=== PATIENT | female | born 1960 | race Two or more races ===

== ENCOUNTER 2023-09-17 09:52 | Outpatient (AMB) | payer MEDICARE, MEDICAID, SELFPAY ==
--- NOTE | 2023-09-17 09:57 | A.OFFVIS_ITS ---
Intake Vital Signs 3 09/17/23 09:58 Height 5 ft 1 in Weight 200 lb BMI 37.8 BP 144/75 H Blood Pressure Location Lt brachial Position Sitting Respiration 12 Pulse 68 Pulse Source Pulse Oximeter Pulse Oximetry (%) 99 Oxygen Delivery Method Room Air Intake Visit Reasons: Disorder of Sacrum/confirmed Allergies latex Adverse Reaction (Severe, Verified 09/17/23 10:02) bruising nabumetone Adverse Reaction (Severe, Verified 09/17/23 10:02) esophageal problems oxycodone Adverse Reaction (Severe, Verified 09/17/23 10:02) n/v Sulfa (Sulfonamide Antibiotics) Adverse Reaction (Severe, Verified 09/17/23 10:02) heart palpitations tramadol Adverse Reaction (Severe, Verified 09/17/23 10:02) rash Medication List - Last Reconciled 09/17/23 by Shanti Juarez LPN albuterol sulfate 90 mcg/actuation (Ventolin HFA) inhalation amlodipine 5 mg PO QPM baclofen 10 mg PO TID epinephrine IM gabapentin 100 mg PO TID levothyroxine 50 mcg PO DAILY metformin 1,000 mg PO BID minoxidil 1.25 mg PO DAILY oxybutynin chloride ER 15 mg PO DAILY sodium hyaluronate (viscosup) (Euflexxa) 16.8 mg intra-articular QWEEK HPI Disorder of Sacrum/confirmed 2 HPI0 Details 63-year-old female who presents today to the office for an evaluation of low back pain. The patient was referred by Dr. Sullivan. Her lower back was described as an aching stabbing sensation that is bilateral, with radiation down the left lower extremity up to the ankle. She has localized lumbar pain when she is upright and if she is slightly bent forward. She has difficulty washing dishes or ambulating with her walker. Her low back and leg pain is about 6-8/10 in intensity. Weather changes and movements make the pain worse. 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 The patient had a left SI joint injection on 08/16/23 that seemed to provide about 60 to 70% relief for a few weeks. She has been using SI compression brace, which is helpful. She is taking gabapentin with minimal benefit. She also complains of bilateral shoulder pain as well as neck pain. Her shoulder pain is rated at 5/10 in intensity. Her neck pain is rated as 8-10/10 in intensity. She is unable to sleep normally. She also receives Euflexxa injections in her knees every six months. She has previously exhausted acupuncture, herbal medications, aquatic exercises, and massage therapy. Her last round of physical therapy was three to four years ago, which was not very helpful. She had weight loss surgery and has been working with weight management at [facility]. She has lost about 100 lbs. since surgery. She had a retinal tear in the past. She also has a floater in her eye. She denies any glaucoma. She has a scheduled appointment with [facility] in [place] later this week. She has a scheduled left retinal surgery in December 2023. She already had right-sided work done in the past. She is retired from work. She was a real estate investor. Oswestry disability index score for low back pain: 37 [facility] Medical History (Updated 09/19/23 @ 09:46 by Shane Musa) Osteoarthritis of knees, bilateral Morbid obesity Diabetes mellitus Hypothyroidism Chronic pain syndrome HTN (hypertension) Asthma Disorder of sacrum Review of Systems Const All systems reviewed & are unremarkable except as noted in HPI and below Physical Exam Vital Signs: Last Vital Signs Pulse 68 09/17/23 09:58 Resp 12 09/17/23 09:58 BP 144/75 H 09/17/23 09:58 Pulse Ox 99 09/17/23 09:58 Oxygen Delivery Method Room Air 09/17/23 09:58 BMI result Body Mass Index 37.8 General: Appears afebrile. Alert and oriented. Mood and affect appropriate. Follows and participates in conversation appropriately. Respiratory effort is unlabored. Able to transition from sit to stand unassisted. Ambulates with with the help of a walker. Straight leg raise is positive on both sides. Extension of the lumbar spine reproduces pain across the lower back. Forward flexion does not reproduce pain. Results Reviewed Results Reviewed: April 2023: MR LUMBAR SPINE WITHOUT CONTRAST. Her MRI scan showed mild anterolisthesis at L4-5 and small Schmorl's node at the inferior and plate of L5 vertebral body. At L 3-4; there is a moderate bilateral facet joint and ligamentum flavum hypertrophy. At L4-5; severe bilateral facet joint hypertrophy and severe spinal canal stenosis. Assessment & Plan Assessment & Plan (1) Sacroiliac joint dysfunction: Code(s): M53.3 - Sacrococcygeal disorders, not elsewhere classified (2) Lumbar spinal stenosis: Code(s): M48.061 - Spinal stenosis, lumbar region without neurogenic claudication (3) Lumbar spondylosis: Code(s): M47.816 - Spondylosis without myelopathy or radiculopathy, lumbar region (4) Lumbar radiculopathy: Code(s): M54.16 - Radiculopathy, lumbar region (5) Lumbar adjacent segment disease with spondylolisthesis: Code(s): M51.36 - Other intervertebral disc degeneration, lumbar region; M43.16 - Spondylolisthesis, lumbar region (6) Vertebrogenic low back pain: Code(s): M54.51 - Vertebrogenic low back pain Plan Pain appears to be multifactorial in nature with a combination of facet arthritis, disc degeneration, vertebral endplate degeneration, sacroiliac joint dysfunction and spinal stenosis. Will schedule her for a left L4-5 diagnostic transforaminal epidural injection. In the future may consider lumbar facet blocks as well as repeat a diagnostic sacroiliac joint injection before pursuing more definitive therapy for any of these targets. Discussed the risks and benefits of the procedure with the patient in detail. All questions were answered. The patient is on board with the plan. Justification for interventional therapy: ? Patient with average pain > 6/10 ? Patient has exhausted conservative therapy ? Patient unable to tolerate physical therapy due to pain Scribed for Dr. Hood by Shane Musa, biomedical equipment tech, on 09/17/2023. I, Dr. Hood, have personally reviewed and agree with the information entered by the scribe. Coding Level of Care Code New Pt Level 4 (28498) Diagnoses Sacroiliac joint dysfunction M53.3 Lumbar spinal stenosis M48.061 Lumbar spondylosis M47.816 Lumbar radiculopathy M54.16 Lumbar adjacent segment disease with spondylolisthesis M51.36; M43.16 Vertebrogenic low back pain M54.51
[2023-09-17 09:58] VITALS: BP 144/75; PULSE 68; RESP 12; O2SAT 99; BMI 37.8
== END 2023-09-17 10:49 | disposition home or self-care (01) ==
PROVIDERS: PCP Student in an Organized Health Care Education/Training Program; Visit Provider Internal Medicine
DX: M53.3 Sacrococcygeal disorders, not elsewhere classified (principal); M48.061 Spinal stenosis, lumbar region without neurogenic claudication; M47.816 Spondylosis without myelopathy or radiculopathy, lumbar region; M54.16 Radiculopathy, lumbar region; M51.36 Other intervertebral disc degeneration, lumbar region; M43.16 Spondylolisthesis, lumbar region; M54.51 Vertebrogenic low back pain
CPT/HCPCS: 99204

== ENCOUNTER → 2023-09-17 09:52 | Outpatient (BNVA) | payer MEDICARE, MEDICAID, SELFPAY | PROVIDERS: PCP Student in an Organized Health Care Education/Training Program; Visit Provider Internal Medicine | DX: M53.3 Sacrococcygeal disorders, not elsewhere classified (principal); M48.061 Spinal stenosis, lumbar region without neurogenic claudication; M47.816 Spondylosis without myelopathy or radiculopathy, lumbar region; M54.16 Radiculopathy, lumbar region; M51.36 Other intervertebral disc degeneration, lumbar region; M43.16 Spondylolisthesis, lumbar region; M54.51 Vertebrogenic low back pain | CPT/HCPCS: 99202 ==

== ENCOUNTER 2023-09-20 06:16 | Outpatient (REF) | payer MEDICARE, MEDICAID, SELFPAY ==
--- NOTE | ~2023-09-20 | FL_ITS ---
EXAMINATION: XR FLUOROSCOPY WITH IMAGES CLINICAL INFORMATION: Radiculopathy, lumbar region COMPARISON: None TECHNIQUE: Fluoroscopic imaging guidance during lumbar injection procedure performed by Dr. Briggs. Fluoroscopy exposure time: 21.7 seconds Dose: 14.3 mGy Dose area product: This information is not given on the dose data summary sheet Images saved: 3 FINDINGS: The purpose of this report is to document use of fluoroscopic imaging equipment during injection procedure of the lumbar spine. Please refer to the procedure report by Dr. Briggs.
== END 2023-09-20 06:17 | disposition home or self-care (01) ==
LOC: CF 06:16
PROVIDERS: Visit Provider Internal Medicine
DX: M54.16 Radiculopathy, lumbar region (principal)
CPT/HCPCS: 64483; J2795; Q9967

== ENCOUNTER 2023-09-20 10:46 | Outpatient (AMB) | payer MEDICARE, MEDICAID, SELFPAY ==
[2023-09-20 10:54] VITALS: BP 122/82; PULSE 79; O2SAT 97
--- NOTE | 2023-09-20 10:54 | MHC.OFFVIS ---
Intake Vital Signs 09/20/23 10:54 Height 5 ft 1 in BP 122/82 Blood Pressure Location Rt brachial Position Sitting Pulse 79 Pulse Source Doppler Pulse Oximetry (%) 97 Oxygen Delivery Method Room Air Intake Visit Reasons: Left L4-L5 Dx transforaminal epidural injection Allergies latex Adverse Reaction (Severe, Verified 09/17/23 10:02) bruising nabumetone Adverse Reaction (Severe, Verified 09/17/23 10:02) esophageal problems oxycodone Adverse Reaction (Severe, Verified 09/17/23 10:02) n/v Sulfa (Sulfonamide Antibiotics) Adverse Reaction (Severe, Verified 09/17/23 10:02) heart palpitations tramadol Adverse Reaction (Severe, Verified 09/17/23 10:02) rash HPI Left L4-L5 Dx transforaminal epidural injection HPI Details Patient presents for scheduled procedure. Denies any recent cough, cold, infection, fever or other significant changes in medical history since last office visit. [facility] Medical History (Updated 09/19/23 @ 09:46 by Shane Musa) Osteoarthritis of knees, bilateral Morbid obesity Diabetes mellitus Hypothyroidism Chronic pain syndrome HTN (hypertension) Asthma Disorder of sacrum Physical Exam Vital Signs: Last Vital Signs Pulse 79 09/20/23 10:54 BP 122/82 09/20/23 10:54 Pulse Ox 97 09/20/23 10:54 Oxygen Delivery Method Room Air 09/20/23 10:54 Office Procedures Details: Transforaminal epidural steroid injection, Left L3/4 After obtaining written consent, pre-procedure blood pressure and heart rate were stable and recorded in the nursing record. The patient was placed in the prone position on the fluoroscopy table. The lumbosacral area was prepped with chloraprep, allowed to dry and draped in sterile fashion. For ease of access, the L3/4 foramen was targeted. Using fluoroscopy, the skin overlying our target was anesthetized with 0.5% lidocaine. A 22 gauge 3.5 inch spinal needle was advanced to the safe triangle in the upper pole of the left L3 foramen. No paresthesias were elicited with needle placement and aspiration was negative for blood and CSF. Correct needle position was confirmed with approximately 1 ml contrast dye (Omnipaque 180 mg/ml) injected under real-time fluoroscopy. No evidence of vascular or intrathecal uptake was seen and there was both epidural and peripheral spread of the contrast agent. 1.5 ml containing 0.5% lidocaine and 0.5% ropivacaine was slowly injected. The needle was flushed and removed. The skin was cleansed and a sterile bandages were applied. The patient tolerated the procedure well and no complications were encountered. Following the procedure the patient's vital signs were stable. The patient was discharged home in good condition with post-procedural instructions. Time Out: Immediately prior to the procedure, the following was verbally confirmed that there is a signed consent form and that the correct patient, planned procedure, site and side are consistent with documentation and that necessary equipment and/or blood products are available prior to the start of the case. Complications: none EBL: <5 cc 32803 - Lumbar/Sacral Procedure code (CPT) selection complete Assessment & Plan Assessment & Plan (1) Lumbar radiculopathy: Code(s): M54.16 - Radiculopathy, lumbar region Plan Patient is status post left L3/4 diagnostic TFESI. Patient tolerated procedure well and was discharged home in stable condition with discharge instructions. All questions were answered. We will follow-up via telephone or in clinic to assess response to therapy. A follow-up appointment was made during today's visit. Orders: Orders FL guidance in treatment room Today M54.16 - Radiculopathy, lumbar region Coding Level of Care Code Procedure Only Diagnoses Lumbar radiculopathy M54.16 CPT Codes Transforaminal Epidural Steroid Inj - TESI 3: 51562 - Lumbar/Sacral ([id number])
== END 2023-09-20 11:33 | disposition home or self-care (01) ==
LOC: HO.PMCPRC 10:47
PROVIDERS: PCP Student in an Organized Health Care Education/Training Program; Visit Provider Internal Medicine
DX: M54.16 Radiculopathy, lumbar region (principal)
CPT/HCPCS: 64483

== ENCOUNTER 2023-09-28 11:17 | Outpatient (AMB) | payer MEDICARE, MEDICAID, SELFPAY ==
--- NOTE | 2023-09-28 11:19 | A.OFFVIS_ITS ---
Intake Vital Signs 09/28/23 11:24 Height 5 ft 1 in Weight 206 lb BMI 38.9 BP 141/68 H Blood Pressure Location Lt brachial Position Sitting Respiration 12 Pulse 80 Pulse Source Pulse Oximeter Pulse Oximetry (%) 99 Oxygen Delivery Method Room Air Intake Visit Reasons: s/p Left L4-L5 Dx transforaminal epidural inj Allergies latex Adverse Reaction (Severe, Verified 09/28/23 11:26) bruising nabumetone Adverse Reaction (Severe, Verified 09/28/23 11:26) esophageal problems oxycodone Adverse Reaction (Severe, Verified 09/28/23 11:26) n/v Sulfa (Sulfonamide Antibiotics) Adverse Reaction (Severe, Verified 09/28/23 11:26) heart palpitations tramadol Adverse Reaction (Severe, Verified 09/28/23 11:26) rash Medication List - Last Reconciled 09/28/23 by Shanti Juarez LPN albuterol sulfate 90 mcg/actuation (Ventolin HFA) inhalation amlodipine 5 mg PO QPM baclofen 10 mg PO TID epinephrine IM gabapentin 100 mg PO TID levothyroxine 50 mcg PO DAILY metformin 1,000 mg PO BID minoxidil 1.25 mg PO DAILY oxybutynin chloride ER 15 mg PO DAILY sodium hyaluronate (viscosup) (Euflexxa) 16.8 mg intra-articular QWEEK HPI s/p Left L4-L5 Dx transforaminal epidural inj HPI Details 63-year-old female who presents today to the office for a status post left L4-L5 diagnostic TFESI The patient reports 90% relief following the procedure for two days for back symptoms. She states that her pain started coming back on 09/25/23. She has a history of SIJ pain on the right side. She reports worsening of pain in the mid back region when bending forward more than 90 degrees. She also noticed improvement in electrical sensations in her leg for two days. She is avoiding strenuous activity at home. She performs aqua jogging with good benefit. She has previously had epidural steroid injections with very minimal length of relief. Past procedure: 09/20/23: Transforaminal epidural steroid injection, Left L3/4: 90% relief for two days for back symptoms. [facility] Medical History (Updated 09/28/23 @ 12:29 by Adam Hood MD) Osteoarthritis of knees, bilateral Morbid obesity Diabetes mellitus Hypothyroidism Chronic pain syndrome HTN (hypertension) Asthma Disorder of sacrum Review of Systems Const All systems reviewed & are unremarkable except as noted in HPI and below Physical Exam Vital Signs: Last Vital Signs Pulse 80 09/28/23 11:24 Resp 12 09/28/23 11:24 BP 141/68 H 09/28/23 11:24 Pulse Ox 99 09/28/23 11:24 Oxygen Delivery Method Room Air 09/28/23 11:24 BMI result Body Mass Index 38.9 General: Appears afebrile. Alert and oriented. Mood and affect appropriate. Follows and participates in conversation appropriately. Respiratory effort is unlabored. Able to transition from sit to stand unassisted. Ambulates with bilaterally normal heel strike and toe off. Results Reviewed Results Reviewed: MR images reviewed again Assessment & Plan Assessment & Plan (1) Spinal stenosis, lumbar region with neurogenic claudication: Code(s): M48.062 - Spinal stenosis, lumbar region with neurogenic claudication Plan We reviewed her imaging that showed moderate spinal stenosis at L3-4 and L4-5 ligamentum flavum hypertrophy at both sides. She is interested in more long-term options. I had an extensive discussion about minimally invasive lumbar decompression. We also reviewed her images and the details of the procedure today. She is interested in proceeding with the plan. We will schedule her for bilateral L3-L4-L5 MILD. Discussed the risks and benefits of the procedure with the patient in detail. All questions were answered. The patient is on board with the plan. Justification for interventional therapy: ? Patient with average pain > 6/10 ? Patient has exhausted sacroiliac and epidural steroid injections ? Patient unable to tolerate physical therapy due to pain Scribed for Dr. Hood by Shane Musa, medical assistant prn, on 09/28/2023. I, Dr. Hood, have personally reviewed and agree with the information entered by the scribe. Coding Level of Care Code Est Pt Level 4 (53336) Diagnoses Spinal stenosis, lumbar region with neurogenic claudication M48.062
[2023-09-28 11:24] VITALS: BP 141/68; PULSE 80; RESP 12; O2SAT 99; BMI 38.9
== END 2023-09-28 12:07 | disposition home or self-care (01) ==
PROVIDERS: PCP Student in an Organized Health Care Education/Training Program; Visit Provider Internal Medicine
DX: M48.062 Spinal stenosis, lumbar region with neurogenic claudication (principal)
CPT/HCPCS: 99214

== ENCOUNTER → 2023-09-28 11:17 | Outpatient (BNVA) | payer MEDICARE, MEDICAID, SELFPAY | PROVIDERS: PCP Student in an Organized Health Care Education/Training Program; Visit Provider Internal Medicine | DX: M48.062 Spinal stenosis, lumbar region with neurogenic claudication (principal) | CPT/HCPCS: 99212 ==

== ENCOUNTER 2023-11-14 11:26 | Day surgery (SDC) | payer MEDICARE, MEDICAID, SELFPAY ==
--- NOTE | 2023-11-13 11:02 | HO.ANESPROP2 ---
Documented by User: Raegan Allen NP 11/13/23 11:02 HPI - Anesthesia Eval Consult details Narrative: 63yo F for Bilateral L3-L4-L5 Minimally Invasive Lumbar Decompression PMFSH Active Problems Active Problems: All Active Problems (Updated 09/28/23 @ 12:29 by Adam Hood MD) Spinal stenosis, lumbar region with neurogenic claudication (Acute) Vertebrogenic low back pain (Acute) Lumbar adjacent segment disease with spondylolisthesis (Acute) Lumbar radiculopathy (Acute) Lumbar spondylosis (Acute) Lumbar spinal stenosis (Acute) Sacroiliac joint dysfunction (Acute) Past Medical History Medical History Hx of restrictive lung disease Osteopenia Hx of hepatic disease GERD (gastroesophageal reflux disease) History of polycystic ovarian disease Osteoarthritis of knees, bilateral Morbid obesity Hypothyroidism Chronic pain syndrome HTN (hypertension) Asthma Disorder of sacrum Surgical History Surgical History Hx of exploratory laparotomy Hx of hysterectomy Hx of appendectomy Hx of abdominal surgery Hx of eye surgery History of sleeve gastrectomy Hx of left cataract extraction Social History Social History Patient Tobacco Use Status: Never used Tobacco Use of substances other than those prescribed or required for medical reasons: No Are you DNR?: No Advance Directives: Yes Advance Directives Information Provided: Yes Advance Directives on File: No Advance Directives Date on File: 11/14/23 Meds Allergies Allergy/AdvReac Type Severity Reaction Status Date / Time latex AdvReac Severe bruising Verified 11/14/23 11:59 nabumetone AdvReac Severe esophageal Verified 11/14/23 11:59 problems oxycodone AdvReac Severe n/v Verified 11/14/23 11:59 Sulfa (Sulfonamide AdvReac Severe heart Verified 11/14/23 11:59 Antibiotics) palpitations tramadol AdvReac Severe rash Verified 11/14/23 11:59 Home Medications Medication Instructions Recorded Confirmed Last Taken Type albuterol sulfate 90 mcg/actuation inhalation 09/17/23 09/28/23 Unknown History aerosol inhaler (Ventolin HFA) amlodipine 5 mg tablet 5 mg PO QPM 09/17/23 09/28/23 Unknown History baclofen 10 mg tablet 10 mg PO TID 09/17/23 09/28/23 Unknown History epinephrine 0.3 mg/0.3 mL IM 09/17/23 09/28/23 Unknown History injection, auto-injector gabapentin 100 mg capsule 100 mg PO TID 09/17/23 09/28/23 Unknown History levothyroxine 50 mcg tablet 50 mcg PO DAILY 09/17/23 09/28/23 Unknown History metformin 500 mg tablet 1,000 mg PO BID 09/17/23 09/28/23 Unknown History minoxidil 2.5 mg tablet 1.25 mg PO DAILY alopecia 09/17/23 09/28/23 Unknown History oxybutynin chloride 15 mg 15 mg PO DAILY 09/17/23 09/28/23 Unknown History tablet,extended release 24 hr sodium hyaluronate (viscosup) 10 16.8 mg intra-articular QWEEK 09/17/23 09/28/23 Unknown History mg/mL(mw 2.4-3.6 million)intra-articular syringe (Euflexxa) Assessment and Plan Assessment Anesthesia Assessment: Chart Reviewed Documented by User: Blanche Klein MD 11/14/23 14:51 PMFSH Past Medical History Medical History Hx of restrictive lung disease Osteopenia Hx of hepatic disease GERD (gastroesophageal reflux disease) History of polycystic ovarian disease Osteoarthritis of knees, bilateral Morbid obesity Hypothyroidism Chronic pain syndrome HTN (hypertension) Asthma Disorder of sacrum Surgical History Surgical History Hx of exploratory laparotomy Hx of hysterectomy Hx of appendectomy Hx of abdominal surgery Hx of eye surgery History of sleeve gastrectomy Hx of left cataract extraction History of Problems with Anesthesia: No Social History Social History Patient Tobacco Use Status: Never used Tobacco Use of substances other than those prescribed or required for medical reasons: No Are you DNR?: No Advance Directives: Yes Advance Directives Information Provided: Yes Advance Directives on File: No Advance Directives Date on File: 11/14/23 Meds Allergies Allergy/AdvReac Type Severity Reaction Status Date / Time latex AdvReac Severe bruising Verified 11/14/23 11:59 nabumetone AdvReac Severe esophageal Verified 11/14/23 11:59 problems oxycodone AdvReac Severe n/v Verified 11/14/23 11:59 Sulfa (Sulfonamide AdvReac Severe heart Verified 11/14/23 11:59 Antibiotics) palpitations tramadol AdvReac Severe rash Verified 11/14/23 11:59 Home Medications Medication Instructions Recorded Confirmed Last Taken Type albuterol sulfate 90 mcg/actuation inhalation 09/17/23 09/28/23 Unknown History aerosol inhaler (Ventolin HFA) amlodipine 5 mg tablet 5 mg PO QPM 09/17/23 09/28/23 Unknown History baclofen 10 mg tablet 10 mg PO TID 09/17/23 09/28/23 Unknown History epinephrine 0.3 mg/0.3 mL IM 09/17/23 09/28/23 Unknown History injection, auto-injector gabapentin 100 mg capsule 100 mg PO TID 09/17/23 09/28/23 Unknown History levothyroxine 50 mcg tablet 50 mcg PO DAILY 09/17/23 09/28/23 Unknown History metformin 500 mg tablet 1,000 mg PO BID 09/17/23 09/28/23 Unknown History minoxidil 2.5 mg tablet 1.25 mg PO DAILY alopecia 09/17/23 09/28/23 Unknown History oxybutynin chloride 15 mg 15 mg PO DAILY 09/17/23 09/28/23 Unknown History tablet,extended release 24 hr sodium hyaluronate (viscosup) 10 16.8 mg intra-articular QWEEK 09/17/23 09/28/23 Unknown History mg/mL(mw 2.4-3.6 million)intra-articular syringe (Euflexxa) Exam Airway Mallampati Class: II TM Dist: >3cm Neck ROM: Full Denture: Upper and Lower Loose/Missing/Broken Teeth: Yes, Upper and Lower Heart: RRR Lungs: CTA Assessment and Plan Assessment Anesthesia Assessment: Anesthesia Plan Discussed Final Anesthetic Review History of Problems with Anesthesia: No NPO: Yes ASA Class: II Final Preanesthetic Review: Meds/Allgs Chart Reviewed, Consent Obtained/Reviewed and Anes Risks/Benef Reviewed Patient Risk: Low Procedure Risk: Low Anesthetic Plan Anesthetic Plan: MAC: Disposition: Standard PACU
[2023-11-14] VITALS (13 sets, daily range): BP systolic 111–142; BP diastolic 65–83; PULSE 59–72; RESP 14–17; TEMP 36.6–36.8; O2SAT 98–100; BMI 38.2
--- NOTE | ~2023-11-14 | FL_ITS ---
EXAMINATION: XR FLUOROSCOPY WITH IMAGES CLINICAL INFORMATION: Minimally invasive lumbar decompression. COMPARISON: Fluoroscopy dated 09/20/2023. TECHNIQUE: Fluoroscopy Supervised By: Dr. Adam Hood. Fluoroscopy Time: 7.7 minutes. Cumulative Dose: 277 mGy. DAP: 11.2 Gycm2. Images: 5. FINDINGS: The submitted images show surgical instruments related to lumbar decompression. FL/FL guidance in OR IMPRESSION: Intraoperative fluoroscopic guidance is provided minimally invasive lumbar decompression. Please see the patient's Operative Report for full procedural details.
[2023-11-14] MEDS: Lactated Ringers 1,000 ML 100 ML IVCONT (12:15)
[2023-11-14 12:23] LABS: Glucose, Whole Blood 101 mg/dL (60-115)
--- NOTE | 2023-11-14 14:24 | MHC.SHP ---
Pre-Procedural Eval Section A - 24 Hr Update-Section A only Date of Service: 11/14/23 The patient is an INPATIENT: No Changes since office visit: Yes Patient answered all questions The patient has been examined within 24 hours of the surgical procedure. The History & Physical has been completed within 30 days and I have reviewed it.: No Section B - Complete if H&P > 30 days Chief Complaint: Spinal stenosis, lumbar region with neurogenic cla Relevant Family History (Specify if Yes): No Relevant Social History: None Present Medications: see Short Stay Collaborative assessment Medical History: No relevant PMH History of Previous Operations: No relevant previous surgery Allergies: Allergies Allergy/AdvReac Type Severity Reaction Status Date / Time latex AdvReac Severe bruising Verified 11/14/23 11:59 nabumetone AdvReac Severe esophageal Verified 11/14/23 11:59 problems oxycodone AdvReac Severe n/v Verified 11/14/23 11:59 Sulfa (Sulfonamide AdvReac Severe heart Verified 11/14/23 11:59 Antibiotics) palpitations tramadol AdvReac Severe rash Verified 11/14/23 11:59 Review of Systems Sugical H&P ROS: Negative: Constitution, Cardiovascular and Respiratory Exam Surgical H&P Exam: Normal: HEENT, Normal: Heart and Normal: Lungs Plan Diagnosis/Plan: Unchanged I have reviewed the history and physical and performed a pertinent physical examination on my patient. No changes have occurred unless specified. Time Spent With Patient Time: Total time managing care of this patient today ____ minutes.
--- NOTE | 2023-11-14 14:29 | P.BOP_ITS ---
Brief Operative Note Date of Service: 11/14/23 Pre-op diagnosis: Lumbar spinal stenosis with neurogenic claudication Post-op diagnosis: same Procedure: Minimally invasive lumbar decompression, L3-4, L4-5 Implants: None Surgeon: Adam Hood MD Anesthesia: MAC Was an Restaurant Assistant used for this Procedure?: No Estimated blood loss (mL): 5 Pathology: none sent Condition: stable Disposition: PACU
--- NOTE | 2023-11-14 14:29 | W.PM.OPN ---
Operative Note Operative Note Date of Service: 11/14/23 Narrative: Minimally Invasive Lumbar Decompression, Bilateral, L-3/4, L-4/5 After informed consent, patient was brought to the operating room. The patient was placed in the prone position in the fluoroscopy suite with blankets (bolster) under the hips to assist with reversing lordosis of the spine. Following IV sedation and antibiotic administration, the patient was prepped and draped in my usual standard fashion. Time-out was performed to confirm site and level of intervention. Ample amounts of local anesthetic were used to anesthetize the skin and deep facial planes after topographical landmarks were identified. Procedural safety barriers were established by utilizing a contralateral oblique (FARHAT) view to visualize the ventral interlaminar line (VILL). Instruments remained posterior to the VILL during the percutaneous lumbar decompression procedure. A small midline incision was made with a sharp scalpel blade, and a trocar with portal was inserted percutaneously under fluoroscopic guidance to contact the lamina indicated. The trocar and portal were tugged to the right side to approach the right interlaminar space first. A bone-sculpting rongeur was inserted to remove adequate amounts of lamina (laminotomy) from the superior surface of the inferior operative lamina site and from the inferior aspect of the lamina above it. The laminotomy created a passage for the tissue sculpting instrument used in debulking the ligamentum flavum. The ligamentum flavum was debulked until diminished returns. A similar procedure was performed on the contralateral side. There were no complications or difficulties noted with these procedures. Upon completion of the procedure, instruments were removed, hemostasis was achieved by direct pressure, and wound closure was performed with dermabond and steristrips. The patient tolerated the procedure well. Upon transferring the patient to the recovery room, the patient?s vital signs remained stable and without any neurologic deficits. The patient was discharged with instructions to rest, continue with ice, and to demonstrate progressive mobility. The patient was given a follow-up exam time and date along with instructions and contact information for any questions or concerns. The patient is to be followed up in the office for further evaluation and treatment, as deemed appropriate and necessary, and for any concerns regarding the procedure.
[2023-11-14 15:09] LABS: MRSA Nasal PCR NEGATIVE (Negative); SA Nasal PCR NEGATIVE (Negative)
[2023-11-14] MEDS: fentaNYL citrate/PF 100 MCG/2 ML VIAL 25 MCG IVPUSH (16:45)
== END 2023-11-14 17:30 | disposition home or self-care (01) ==
PROVIDERS: Registered Nurse Emergency; PCP Student in an Organized Health Care Education/Training Program; Visit Provider Internal Medicine
PROC: (CPT 0275T; principal; 2023-11-14 13:40)
DX: M48.062 Spinal stenosis, lumbar region with neurogenic claudication (principal); Z00.6 Encounter for examination for normal comparison and control in clinical research program; G89.4 Chronic pain syndrome; M53.3 Sacrococcygeal disorders, not elsewhere classified; I10 Essential (primary) hypertension; J45.909 Unspecified asthma, uncomplicated; E11.9 Type 2 diabetes mellitus without complications; E66.01 Morbid (severe) obesity due to excess calories; Z68.38 Body mass index [BMI] 38.0-38.9, adult; Z79.84 Long term (current) use of oral hypoglycemic drugs; Z79.899 Other long term (current) drug therapy; Z91.040 Latex allergy status; Z88.5 Allergy status to narcotic agent; Z88.2 Allergy status to sulfonamides
CPT/HCPCS: 0275T; 82947; 87640; 87641; A4364; C1889; J0131; J0690; J1885; J2250; J2405; J2704; J2795; J3010

== ENCOUNTER → 2023-11-14 11:26 | Outpatient (BNV) | payer MEDICARE, MEDICAID, SELFPAY | PROVIDERS: PCP Student in an Organized Health Care Education/Training Program; Visit Provider Internal Medicine | DX: M48.062 Spinal stenosis, lumbar region with neurogenic claudication (principal); Z00.6 Encounter for examination for normal comparison and control in clinical research program | CPT/HCPCS: 0275T ==

== ENCOUNTER 2023-11-21 09:54 | Outpatient (AMB) | payer MEDICARE, MEDICAID, SELFPAY ==
--- NOTE | 2023-11-21 10:07 | A.OFFVIS_ITS ---
Intake Vital Signs 11/21/23 10:08 Height 5 ft 2 in Weight 209 lb BMI 38.2 BP 146/82 H Blood Pressure Location Lt brachial Position Sitting Pulse 86 Pulse Source Pulse Oximeter Pulse Oximetry (%) 99 Oxygen Delivery Method Room Air Intake Visit Reasons: S/p L3-L4-L5 MILD 11/14/23 Allergies latex Adverse Reaction (Severe, Verified 11/21/23 10:07) bruising nabumetone Adverse Reaction (Severe, Verified 11/21/23 10:07) esophageal problems oxycodone Adverse Reaction (Severe, Verified 11/21/23 10:07) n/v Sulfa (Sulfonamide Antibiotics) Adverse Reaction (Severe, Verified 11/21/23 10:07) heart palpitations tramadol Adverse Reaction (Severe, Verified 11/21/23 10:07) rash Medication List - Last Reconciled 11/21/23 by Heather Tripathi, CUSTOMER MANAGEMENT SPECIALIST albuterol sulfate 90 mcg/actuation (Ventolin HFA) inhalation amlodipine 5 mg PO QPM baclofen 10 mg PO TID epinephrine IM gabapentin 100 mg PO TID levothyroxine 50 mcg PO DAILY metformin 1,000 mg PO BID minoxidil 1.25 mg PO DAILY morphine 7.5 mg (1/2 x 15 mg) PO BID PRN oxybutynin chloride ER 15 mg PO DAILY sodium hyaluronate (viscosup) (Euflexxa) 16.8 mg intra-articular QWEEK HPI S/p L3-L4-L5 MILD 11/14/23 HPI Details 63-year-old female who presents today to the office for status post L3-L4-L5 MILD 11/14/23 The patient reports 90% relief following the procedure. Today, she is feeling much better and was able to walk without her walker and is using just a cane. She continues to have left-sided sacroiliac joint pain. ____ motion which responds to application of a compression belt that has been previously prescribed to her for SI joint dysfunction. She has a vacation coming up here in 2 or 3 weeks and is interested in SI joint injection to help with her pain. Past Procedures: 11/14/23: Minimally Invasive Lumbar Decom pression, Bilateral, L-3/4, L-4/5: 90% relief PFSH Medical History Hx of restrictive lung disease Osteopenia Hx of hepatic disease GERD (gastroesophageal reflux disease) History of polycystic ovarian disease Osteoarthritis of knees, bilateral Morbid obesity Hypothyroidism Chronic pain syndrome HTN (hypertension) Asthma Disorder of sacrum Surgical History Hx of exploratory laparotomy Hx of hysterectomy Hx of appendectomy Hx of abdominal surgery Hx of eye surgery History of sleeve gastrectomy Hx of left cataract extraction Social History Patient Tobacco Use Status: Never used Tobacco Advance Directives Date on File: 11/14/23 Review of Systems Const All systems reviewed & are unremarkable except as noted in HPI and below Physical Exam Vital Signs: Last Vital Signs Pulse 86 11/21/23 10:08 BP 146/82 H 11/21/23 10:08 Pulse Ox 99 11/21/23 10:08 Oxygen Delivery Method Room Air 11/21/23 10:08 BMI result Body Mass Index 38.2 General: Appears afebrile. Alert and oriented. Mood and affect appropriate. Follows and participates in conversation appropriately. Respiratory effort is unlabored. Able to transition from sit to stand unassisted. Results Reviewed Results Reviewed: No imaging is available for review Assessment & Plan Assessment & Plan (1) Sacroiliac joint dysfunction: Code(s): M53.3 - Sacrococcygeal disorders, not elsewhere classified Plan We will schedule for a left sacroiliac joint therapeutic injection in setting of prior sacroiliac joint dysfunction that responds well to compression belt application. Her neurogenic claudication symptoms are 90% better. I provided her with a list of exercises to continue at home to help improve her spinal strength and stability. She is on medications for hypertension, so I advised her to watch her blood pressure after the cortisone injection since she will be traveling soon after. Discussed the risks and benefits of the procedure with the patient in detail. All questions were answered. The patient is on board with the plan. Justification for interventional therapy: ? Patient with average pain > 6/10 ? Patient has exhausted conservative therapy ? Patient continuing home exercise program ? SI joint compression provides temporary relief . Patient has a good understanding of their pain condition and has appropriate mental and social support. Scribed for Dr. Hood by Christen Adamson, medical pathologist, on 10/10/2023. I, Dr. Hood, have personally reviewed and agree with the information entered by the scribe. Coding Level of Care Code Est Pt Level 3 (01641) Diagnoses Sacroiliac joint dysfunction M53.3
[2023-11-21 10:08] VITALS: BP 146/82; PULSE 86; O2SAT 99; BMI 38.2
== END 2023-11-21 10:35 | disposition home or self-care (01) ==
PROVIDERS: PCP Student in an Organized Health Care Education/Training Program; Visit Provider Internal Medicine
DX: M53.3 Sacrococcygeal disorders, not elsewhere classified (principal)
CPT/HCPCS: 99024

== ENCOUNTER → 2023-11-21 09:54 | Outpatient (BNVA) | payer MEDICARE, MEDICAID, SELFPAY | PROVIDERS: PCP Student in an Organized Health Care Education/Training Program; Visit Provider Internal Medicine | DX: M53.3 Sacrococcygeal disorders, not elsewhere classified (principal) | CPT/HCPCS: 99212 ==

== ENCOUNTER 2023-11-30 11:31 | Outpatient (AMB) | payer MEDICARE, MEDICAID, SELFPAY ==
--- NOTE | 2023-11-30 11:35 | MHC.OFFVIS ---
Vital Signs 11/30/23 11:37 Height 5 ft 2 in Weight 209 lb BMI 38.2 BP 172/94 H Blood Pressure Location Rt radial Position Sitting Respiration 13 Pulse 91 Pulse Source Pulse Oximeter Intake Visit Reasons: Pt states incision red/swollen Allergies latex Adverse Reaction (Severe, Verified 12/07/23 09:35) bruising nabumetone Adverse Reaction (Severe, Verified 12/07/23 09:35) esophageal problems oxycodone Adverse Reaction (Severe, Verified 12/07/23 09:35) n/v Sulfa (Sulfonamide Antibiotics) Adverse Reaction (Severe, Verified 12/07/23 09:35) heart palpitations tramadol Adverse Reaction (Severe, Verified 12/07/23 09:35) rash Medication List - Last Reconciled 11/30/23 by Shanti Juarez LPN albuterol sulfate 90 mcg/actuation (Ventolin HFA) inhalation amlodipine 5 mg PO QPM baclofen 10 mg PO TID epinephrine IM gabapentin 100 mg PO TID levothyroxine 50 mcg PO DAILY metformin 1,000 mg PO BID minoxidil 1.25 mg PO DAILY morphine 7.5 mg (1/2 x 15 mg) PO BID PRN oxybutynin chloride ER 15 mg PO DAILY sodium hyaluronate (viscosup) (Euflexxa) 16.8 mg intra-articular QWEEK HPI HPI Pt states incision red/swollen: Details: 63-year-old female who presents today to the office for an evaluation. She is presenting with a non-healing puncture wound from a surgical procedure. She noticed that her wound site was tender a few days ago. It has improved since then in terms of tenderness, but continues to have an opening. She has been putting a band aid on. She has an upcoming trip that might involve going into the ocean. Past Procedures: 11/14/23: Minimally Invasive Lumbar Decompression, Bilateral, L-3/4, L-4/5: 90% relief 09/20/23: Transforaminal epidural steroid injection, Left L3/4: 90% relief for two days for back symptoms. COUNT INCLUDES THE [facility] Medical History Hx of restrictive lung disease Osteopenia Hx of hepatic disease GERD (gastroesophageal reflux disease) History of polycystic ovarian disease Osteoarthritis of knees, bilateral Morbid obesity Hypothyroidism Chronic pain syndrome HTN (hypertension) Asthma Disorder of sacrum Surgical History Hx of exploratory laparotomy Hx of hysterectomy Hx of appendectomy Hx of abdominal surgery Hx of eye surgery History of sleeve gastrectomy Hx of left cataract extraction Social History Patient Tobacco Use Status: Never used Tobacco Advance Directives Date on File: 11/14/23 Review of Systems Const All systems reviewed & are unremarkable except as noted in HPI and below Physical Exam Vital Signs: Last Vital Signs Pulse 91 11/30/23 11:37 Resp 13 11/30/23 11:37 BP 172/94 H 11/30/23 11:37 BMI result Body Mass Index 38.2 General: Appears afebrile. Alert and oriented. Mood and affect appropriate. Follows and participates in conversation appropriately. Respiratory effort is unlabored. Able to transition from sit to stand unassisted. Ambulates with bilaterally normal heel strike and toe off. The surgical site continues to have a sinus opening in the middle. There is a palpable, fluctuant mass lateral to the sinus on the left side. It is non tender to palpation. There is no drainage from the sinus or from the opening. There is no redness. Results Reviewed Results Reviewed: No imaging is available for review. Assessment & Plan Assessment & Plan (1) Lumbar spinal stenosis: Comment: s/p MILD Code(s): M48.061 - Spinal stenosis, lumbar region without neurogenic claudication Category: Medical Plan The patient is presenting with a non-healing puncture wound from MILD procedure. I advised her to apply bacitracin cream to the affected area. She has an upcoming trip that might involve going into the ocean, so we will reassess the wound when she comes back for her SI joint injection. If she is continuing to have an open sinus, then I would advise her not to participate in water-based activities. The patient expressed understanding. Scribed for Dr. Hood by Shane Musa, medical management trainer, on 11/30/2023. I, Dr. Hood, have personally reviewed and agree with the information entered by the scribe.
[2023-11-30 11:37] VITALS: BP 172/94; PULSE 91; RESP 13; BMI 38.2
== END 2023-11-30 11:54 | disposition home or self-care (01) ==
PROVIDERS: PCP Student in an Organized Health Care Education/Training Program; Visit Provider Internal Medicine
DX: M48.061 Spinal stenosis, lumbar region without neurogenic claudication (principal)
CPT/HCPCS: 99024

== ENCOUNTER → 2023-11-30 11:31 | Outpatient (BNVA) | payer MEDICARE, MEDICAID, SELFPAY | PROVIDERS: PCP Student in an Organized Health Care Education/Training Program; Visit Provider Internal Medicine | DX: M48.061 Spinal stenosis, lumbar region without neurogenic claudication (principal) | CPT/HCPCS: 99212 ==

== ENCOUNTER 2023-12-06 06:15 | Outpatient (REF) | payer MEDICARE, MEDICAID, SELFPAY | END 2023-12-06 06:16 | disposition home or self-care (01) | LOC: CF 06:15 | PROVIDERS: Visit Provider Internal Medicine | DX: Z13.89 Encounter for screening for other disorder (principal) ==

== ENCOUNTER 2023-12-07 09:17 | Outpatient (AMB) | payer MEDICARE, MEDICAID, SELFPAY ==
[2023-12-07 09:34] VITALS: BP 141/96; PULSE 104; RESP 14; O2SAT 98; BMI 38.4
--- NOTE | 2023-12-07 09:34 | MHC.OFFVIS ---
Intake Vital Signs 12/07/23 09:34 Height 5 ft 2 in Weight 210 lb BMI 38.4 BP 141/96 H Blood Pressure Location Rt radial Position Sitting Respiration 14 Pulse 104 H Pulse Source Pulse Oximeter Pulse Oximetry (%) 98 Oxygen Delivery Method Room Air Intake Visit Reasons: Wound Check Allergies latex Adverse Reaction (Severe, Verified 12/07/23 09:35) bruising nabumetone Adverse Reaction (Severe, Verified 12/07/23 09:35) esophageal problems oxycodone Adverse Reaction (Severe, Verified 12/07/23 09:35) n/v Sulfa (Sulfonamide Antibiotics) Adverse Reaction (Severe, Verified 12/07/23 09:35) heart palpitations tramadol Adverse Reaction (Severe, Verified 12/07/23 09:35) rash Medication List - Last Reconciled 12/07/23 by Shanti Juarez LPN albuterol sulfate 90 mcg/actuation (Ventolin HFA) inhalation amlodipine 5 mg PO QPM baclofen 10 mg PO TID epinephrine IM gabapentin 100 mg PO TID levothyroxine 50 mcg PO DAILY metformin 1,000 mg PO BID minoxidil 1.25 mg PO DAILY morphine 7.5 mg (1/2 x 15 mg) PO BID PRN oxybutynin chloride ER 15 mg PO DAILY sodium hyaluronate (viscosup) (Euflexxa) 16.8 mg intra-articular QWEEK HPI Wound Check HPI Details 63-year-old female who presents today to the office for a wound check. She had an allergic reaction to the bacitracin ointment on her left buttock skin. She might have scraped the spot, which increased the redness. She states that his right side is unaffected. She described the wound site as itchy and irritated. She has not applied any topical cortisone cream. She still has mild pain around the incision site. She has been applying ice with relief. She denies any back pain. She also requested rescheduling SIJ injection. She has an upcoming trip. Past Procedures: 11/14/23: Minimally Invasive Lumbar Decompression, Bilateral, L-3/4, L-4/5: 90% relief 09/20/23: Transforaminal epidural steroid injection, Left L3/4: 90% relief for two days for back symptoms. [facility] Medical History Hx of restrictive lung disease Osteopenia Hx of hepatic disease GERD (gastroesophageal reflux disease) History of polycystic ovarian disease Osteoarthritis of knees, bilateral Morbid obesity Hypothyroidism Chronic pain syndrome HTN (hypertension) Asthma Disorder of sacrum Surgical History Hx of exploratory laparotomy Hx of hysterectomy Hx of appendectomy Hx of abdominal surgery Hx of eye surgery History of sleeve gastrectomy Hx of left cataract extraction Social History Patient Tobacco Use Status: Never used Tobacco Advance Directives Date on File: 11/14/23 Review of Systems Const All systems reviewed & are unremarkable except as noted in HPI and below Physical Exam Vital Signs: Last Vital Signs Pulse 104 H 12/07/23 09:34 Resp 14 12/07/23 09:34 BP 141/96 H 12/07/23 09:34 Pulse Ox 98 12/07/23 09:34 Oxygen Delivery Method Room Air 12/07/23 09:34 BMI result Body Mass Index 38.4 General: Appears afebrile. Alert and oriented. Mood and affect appropriate. Follows and participates in conversation appropriately. Respiratory effort is unlabored. Able to transition from sit to stand unassisted. Ambulates with bilaterally normal heel strike and toe off. The incision site is still open at the surface of the skin. I dressed it with steri strips to approximate the skin edges. The base of the wound appears to have closed. There is no discharge. There is mild tenderness, but no redness around it. There appears to be a skin sensitivity reaction to the ointment on the left buttock cheek, away from the incision site.? Results Reviewed Results Reviewed: No imaging is available for review. Assessment & Plan Assessment & Plan (1) Sacroiliac joint dysfunction: Code(s): M53.3 - Sacrococcygeal disorders, not elsewhere classified (2) Lumbar spinal stenosis: Comment: s/p MILD Code(s): M48.061 - Spinal stenosis, lumbar region without neurogenic claudication Plan There is an allergic reaction to the bacitracin ointment on her left buttock skin. I advised her to put some cortisone cream on it to help with the allergic reaction. I provided the patient with some instructions and steri strips to apply to keep the incision closed during her upcoming travels. The patient will return for a left sacroiliac joint therapeutic injection next month after her upcoming trip. We will assess the wound at that time again. Scribed for Dr. Hood by Shane Musa, medical insurance biller, on 12/07/2023. I, Dr. Hood, have personally reviewed and agree with the information entered by the scribe. Coding Level of Care Code Est Pt Level 3 (47179) Diagnoses Sacroiliac joint dysfunction M53.3 Lumbar spinal stenosis M48.061
== END 2023-12-07 10:11 | disposition home or self-care (01) ==
PROVIDERS: PCP Student in an Organized Health Care Education/Training Program; Visit Provider Internal Medicine
DX: M53.3 Sacrococcygeal disorders, not elsewhere classified (principal); M48.061 Spinal stenosis, lumbar region without neurogenic claudication
CPT/HCPCS: 99213

== ENCOUNTER → 2023-12-07 09:17 | Outpatient (BNVA) | payer MEDICARE, MEDICAID, SELFPAY | PROVIDERS: PCP Student in an Organized Health Care Education/Training Program; Visit Provider Internal Medicine | DX: M53.3 Sacrococcygeal disorders, not elsewhere classified (principal); M48.061 Spinal stenosis, lumbar region without neurogenic claudication | CPT/HCPCS: 99212 ==

== ENCOUNTER 2023-12-27 06:08 | Outpatient (REF) | payer MEDICARE, MEDICAID, SELFPAY ==
--- NOTE | ~2023-12-27 | FL_ITS ---
EXAMINATION: XR FLUOROSCOPY WITH IMAGES CLINICAL INFORMATION: Sacrococcygeal disorders. COMPARISON: None available. TECHNIQUE: Fluoroscopy Supervised By: Dr. Adam Hood. Fluoroscopy Time: 0.1 SEC. Cumulative Dose: 3.16 mGy. DAP: 0.0196 Gycm2. Images: 2. FINDINGS: Intraoperative fluoroscopy and spot films were performed during a procedure in the OR. Imaging demonstrates a needle overlying what appears to be the left SI joint. Please see Dr. Adam Hood's report for complete details. FL/FL guidance in treatment room IMPRESSION: Intraoperative fluoroscopy and spot films were obtained. Please see Dr. Adam Hood's report for complete details.
== END 2023-12-27 06:09 | disposition home or self-care (01) ==
LOC: CF 06:08
PROVIDERS: Visit Provider Internal Medicine
DX: M53.3 Sacrococcygeal disorders, not elsewhere classified (principal)
CPT/HCPCS: 27096; J2795; J3301

== ENCOUNTER 2023-12-27 07:42 | Outpatient (AMB) | payer MEDICARE, MEDICAID, SELFPAY ==
[2023-12-27 07:51] VITALS: BP 122/76; PULSE 72; RESP 18; O2SAT 98; BMI 38.4
--- NOTE | 2023-12-27 07:51 | MHC.OFFVIS ---
Vital Signs 12/27/23 07:51 12/27/23 08:24 Height 5 ft 2 in Weight 210 lb BMI 38.4 BP 122/76 124/70 Blood Pressure Location Lt brachial Lt radial Position Sitting Sitting Respiration 18 18 Pulse 72 70 Pulse Source Pulse Oximeter Pulse Oximeter Pulse Oximetry (%) 98 97 Oxygen Delivery Method Room Air Room Air Comment Pre-Op Post-Op Intake Visit Reasons: Left theraputic SIJ Allergies latex Adverse Reaction (Severe, Verified 12/07/23 09:35) bruising nabumetone Adverse Reaction (Severe, Verified 12/07/23 09:35) esophageal problems oxycodone Adverse Reaction (Severe, Verified 12/07/23 09:35) n/v Sulfa (Sulfonamide Antibiotics) Adverse Reaction (Severe, Verified 12/07/23 09:35) heart palpitations tramadol Adverse Reaction (Severe, Verified 12/07/23 09:35) rash HPI HPI Left theraputic SIJ: Details: Patient presents for scheduled procedure. Denies any recent cough, cold, infection, fever or other significant changes in medical history since last office visit. [facility] Medical History Hx of restrictive lung disease Osteopenia Hx of hepatic disease GERD (gastroesophageal reflux disease) History of polycystic ovarian disease Osteoarthritis of knees, bilateral Morbid obesity Hypothyroidism Chronic pain syndrome HTN (hypertension) Asthma Disorder of sacrum Surgical History Hx of exploratory laparotomy Hx of hysterectomy Hx of appendectomy Hx of abdominal surgery Hx of eye surgery History of sleeve gastrectomy Hx of left cataract extraction Social History Patient Tobacco Use Status: Never used Tobacco Advance Directives Date on File: 11/14/23 Physical Exam Vital Signs: Last Vital Signs Pulse 70 12/27/23 08:24 Resp 18 12/27/23 08:24 BP 124/70 12/27/23 08:24 Pulse Ox 97 12/27/23 08:24 Oxygen Delivery Method Room Air 12/27/23 08:24 BMI result Body Mass Index 38.4 Office Procedures Joint Injection/Drain Joint Injection/Drain Details: Sacroiliac Joint Injection, Left The procedure, its benefits, and its risks were explained and written informed consent was obtained from the patient. Immediately prior to starting the procedure, a time-out safety check was conducted. The patient's identification, procedure name, procedure site, and procedure laterality were confirmed with the patient. ? Patient was placed prone on the fluoroscopy table and the lumbosacral area was prepped using ChloraPrep and draped with sterile drapein standard fashion. The C-arm was rotated in a contralateral oblique fashion until the medial border of the iliac crest no longer foreshadowed the posterior sacroiliac joint line. The skin and subcutaneous tissue was anesthetized using 1 mL of 0.75% plain lidocaine with 1.5-inch 25-gauge needle in the middle region of the joint line. A 3.5-inch 22-gauge spinal needle with small bend on the tip was slowly advanced towards the joint line, coaxial to the x-ray beam. Once bony content was obtained, the needle was easily slid into the intra-articular space.? Intra-articular needle position was confirmed using lateral fluoroscopy.? A total volume of 2.5mL of solution containing 40 mg Triamcinilone and rest 0.5% of ropivacaine was injected intra-articularly. The stylet was reinserted and needle was removed. The patient tolerated the procedure well. Patient denied any lower extremity weakness or numbness. Patient was observed for 30 min and was discharged after fulfilling the standard discharge criteria. Coding 48603 - Sacroiliac Procedure code (CPT) selection complete Assessment & Plan Assessment & Plan (1) Sacroiliac joint dysfunction: Code(s): M53.3 - Sacrococcygeal disorders, not elsewhere classified Category: Medical Plan Patient is status post left therapeutic sacroiliac joint injection. Patient tolerated procedure well and was discharged home in stable condition with discharge instructions. All questions were answered. We will follow-up via telephone or in clinic to assess response to therapy. A follow-up appointment was made during today's visit. Orders: Orders FL guidance in treatment room Today M53.3 - Sacrococcygeal disorders, not elsewhere classified Coding Level of Care Code Procedure Only Diagnoses Sacroiliac joint dysfunction M53.3 CPT Codes Coding - Joint 9: 34687 - Sacroiliac ([id number])
[2023-12-27 08:24] VITALS: BP 124/70; PULSE 70; RESP 18; O2SAT 97
== END 2023-12-27 08:24 | disposition home or self-care (01) ==
PROVIDERS: PCP Student in an Organized Health Care Education/Training Program; Visit Provider Internal Medicine
DX: M53.3 Sacrococcygeal disorders, not elsewhere classified (principal)
CPT/HCPCS: 27096

== ENCOUNTER 2024-01-04 08:23 | Outpatient (AMB) | payer MEDICARE, MEDICAID, SELFPAY ==
[2024-01-04 08:57] VITALS: BP 148/76; PULSE 66; RESP 14; O2SAT 99; BMI 38.2
--- NOTE | 2024-01-04 08:57 | A.OFFVIS_ITS ---
Vital Signs 01/04/24 08:57 Height 5 ft 2 in Weight 209 lb BMI 38.2 BP 148/76 H Blood Pressure Location Lt brachial Position Sitting Respiration 14 Pulse 66 Pulse Source Pulse Oximeter Pulse Oximetry (%) 99 Oxygen Delivery Method Room Air Intake Visit Reasons: Right Knee Pain Allergies latex Adverse Reaction (Severe, Verified 01/04/24 08:58) bruising nabumetone Adverse Reaction (Severe, Verified 01/04/24 08:58) esophageal problems oxycodone Adverse Reaction (Severe, Verified 01/04/24 08:58) n/v Sulfa (Sulfonamide Antibiotics) Adverse Reaction (Severe, Verified 01/04/24 08:58) heart palpitations tramadol Adverse Reaction (Severe, Verified 01/04/24 08:58) rash Medication List - Last Reconciled 01/04/24 by Shanti Juarez LPN albuterol sulfate 90 mcg/actuation (Ventolin HFA) inhalation amlodipine 5 mg PO QPM baclofen 10 mg PO TID epinephrine IM gabapentin 100 mg PO TID levothyroxine 50 mcg PO DAILY metformin 1,000 mg PO BID minoxidil 1.25 mg PO DAILY morphine 7.5 mg (1/2 x 15 mg) PO BID PRN oxybutynin chloride ER 15 mg PO DAILY sodium hyaluronate (viscosup) (Euflexxa) 16.8 mg intra-articular QWEEK HPI HPI Right Knee Pain: Details: 63-year-old female who presents today to the office for a right knee pain She reports back and hip pain. She has noticed crunching sensations in her back. She states that her incision site is looking good. She was able to walk two blocks without pain on 12/26/23. She will restart exercising at home. She will return to [place] tomorrow. She has had knee pain for several years now. She had an injury and a ruptured MCL. She has a history of arthritis. She has difficulty climbing stairs. She had an x-ray of the knee at [facility] three months ago. She has been experiencing excruciating pain when she tries to palpate or feel the the right knee parapatellar region. She had Euflexxa injections in the past, and the last injection was 9?10 months ago, which provided more than 85%. She has been doing water jogging exercises at home. She has tried aquatherapy for her shoulder pain. She had cataract surgery on December 25, 2023. Past procedures 12/27/23: Sacroiliac Joint Injection, Left: >75% relief. 11/14/23: Minimally Invasive Lumbar Decompression, Bilateral, L-3/4, L-4/5: 90% relief 09/20/23: Transforaminal epidural steroid injection, Left L3/4: 90% relief for two days for back symptoms. [facility] Medical History (Updated 01/04/24 @ 11:06 by Adam Hood MD) Hx of restrictive lung disease Osteopenia Hx of hepatic disease GERD (gastroesophageal reflux disease) History of polycystic ovarian disease Osteoarthritis of knees, bilateral Morbid obesity Hypothyroidism Chronic pain syndrome HTN (hypertension) Asthma Disorder of sacrum Surgical History Hx of exploratory laparotomy Hx of hysterectomy Hx of appendectomy Hx of abdominal surgery Hx of eye surgery History of sleeve gastrectomy Hx of left cataract extraction Social History Patient Tobacco Use Status: Never used Tobacco Advance Directives Date on File: 11/14/23 Review of Systems Const All systems reviewed & are unremarkable except as noted in HPI and below Physical Exam Vital Signs: Last Vital Signs Pulse 66 01/04/24 08:57 Resp 14 01/04/24 08:57 BP 148/76 H 01/04/24 08:57 Pulse Ox 99 01/04/24 08:57 Oxygen Delivery Method Room Air 01/04/24 08:57 BMI result Body Mass Index 38.2 General: Appears afebrile. Alert and oriented. Mood and affect appropriate. Follows and participates in conversation appropriately. Respiratory effort is unlabored. Able to transition from sit to stand unassisted. Ambulates with bilaterally normal heel strike and toe off. Incision crater appears to be filling/healing well. Dry and intact. Results Reviewed Results Reviewed: Review of her imaging showed mild to moderate bilateral knee arthritis. Assessment & Plan Assessment & Plan (1) Osteoarthritis of knees, bilateral: Code(s): M17.0 - Bilateral primary osteoarthritis of knee Category: Medical Plan We will schedule her for bilateral Euflexxa knee injections. Discussed the risks and benefits of the procedure with the patient in detail. All questions were answered. The patient is on board with the plan. Justification for interventional therapy: ? Patient with average pain > 6/10 ? Patient has exhausted conservative therapy ? Patient unable to tolerate physical therapy due to pain ? Previous injection provided 100% relief x 9 months. . Patient has a good understanding of their pain condition and has appropriate mental and social support I recommended lidocaine patches and home exercises for right knee parapatellar sensitivity. Continue gabapentin 100 mg T.I.D. If these modalities are not helpful we can consider neuromod in the future. Scribed for Dr. Hood by Shane Musa, medical officer psychiatry, on 01/04/2024. I, Dr. Hood, have personally reviewed and agree with the information entered by the scribe. Coding Level of Care Code Est Pt Level 3 (98405) Diagnoses Osteoarthritis of knees, bilateral M17.0
== END 2024-01-04 09:13 | disposition home or self-care (01) ==
PROVIDERS: PCP Student in an Organized Health Care Education/Training Program; Visit Provider Internal Medicine
DX: M17.0 Bilateral primary osteoarthritis of knee (principal)
CPT/HCPCS: 99213

== ENCOUNTER → 2024-01-04 08:23 | Outpatient (BNVA) | payer MEDICARE, MEDICAID, SELFPAY | PROVIDERS: PCP Student in an Organized Health Care Education/Training Program; Visit Provider Internal Medicine | DX: M17.0 Bilateral primary osteoarthritis of knee (principal) | CPT/HCPCS: 99212 ==

== ENCOUNTER 2024-02-07 06:17 | Outpatient (REF) | payer MEDICARE, BC, MEDICAID, SELFPAY ==
--- NOTE | ~2024-02-07 | FL_ITS ---
EXAMINATION: XR FLUOROSCOPY WITH IMAGES CLINICAL INFORMATION: Bilateral knee injections. COMPARISON: None available. TECHNIQUE: Fluoroscopy Supervised By: Dr. Adam Hood. Fluoroscopy Time: 0.2 minutes. Cumulative Dose: 0.604 mGy. DAP: 0.04093 Gycm2. Images: 4. FINDINGS: Intraoperative fluoroscopy and spot films were performed during a procedure in the OR. [place] are present in both knee joints from an anterior approach. Contrast media is seen surrounding the needle and in the knee joints. Please correlate with Dr. Adam Hood's report for complete details. FL/FL guidance in treatment room IMPRESSION: Intraoperative fluoroscopy and spot films were obtained. Please see Dr. Adam Hood's report for complete details.
== END 2024-02-07 06:18 | disposition home or self-care (01) ==
LOC: CF 06:17
PROVIDERS: Visit Provider Internal Medicine
DX: M17.0 Bilateral primary osteoarthritis of knee (principal)
CPT/HCPCS: 20610; J7323; Q9965

== ENCOUNTER 2024-02-07 13:39 | Outpatient (AMB) | payer MEDICARE, MEDICAID, SELFPAY ==
--- NOTE | 2024-02-07 13:45 | A.OFFVIS_ITS ---
Vital Signs 02/07/24 15:38 02/07/24 15:39 Height 5 ft 2 in Weight 209 lb BMI 38.2 BP 128/82 126/80 Blood Pressure Location Lt brachial Lt brachial Position Sitting Sitting Respiration 20 18 Pulse 86 81 Pulse Source Pulse Oximeter Pulse Oximeter Pulse Oximetry (%) 96 96 Oxygen Delivery Method Room Air Room Air Comment Pre-Op Post-Op Intake Visit Reasons: colten euflexxa inj Allergies latex Adverse Reaction (Severe, Verified 01/04/24 08:58) bruising nabumetone Adverse Reaction (Severe, Verified 01/04/24 08:58) esophageal problems oxycodone Adverse Reaction (Severe, Verified 01/04/24 08:58) n/v Sulfa (Sulfonamide Antibiotics) Adverse Reaction (Severe, Verified 01/04/24 08:58) heart palpitations tramadol Adverse Reaction (Severe, Verified 01/04/24 08:58) rash HPI HPI colten euflexxa inj: Details: Patient presents for scheduled procedure. Denies any recent cough, cold, infection, fever or other significant changes in medical history since last office visit. [facility] Medical History (Updated 01/04/24 @ 11:06 by Adam Hood MD) Hx of restrictive lung disease Osteopenia Hx of hepatic disease GERD (gastroesophageal reflux disease) History of polycystic ovarian disease Osteoarthritis of knees, bilateral Morbid obesity Hypothyroidism Chronic pain syndrome HTN (hypertension) Asthma Disorder of sacrum Surgical History Hx of exploratory laparotomy Hx of hysterectomy Hx of appendectomy Hx of abdominal surgery Hx of eye surgery History of sleeve gastrectomy Hx of left cataract extraction Social History Patient Tobacco Use Status: Never used Tobacco Advance Directives Date on File: 11/14/23 Physical Exam Vital Signs: Last Vital Signs Pulse 81 02/07/24 15:39 Resp 18 02/07/24 15:39 BP 126/80 02/07/24 15:39 Pulse Ox 96 02/07/24 15:39 Oxygen Delivery Method Room Air 02/07/24 15:39 BMI result Body Mass Index 38.2 Office Procedures Joint Injection/Drain Joint Injection/Drain Details: The knee was visualized using fluoroscopy. A 25 gauge needle was advanced intra- articularly under fluoroscopy and placement was confirmed with Omnipaque 1-2 cc 180 milligrams/mL. Following intra-articular confirmation, the prepackaged Eufl exxa syringe containing 2 mL sodium hyaluronate was retrieved and administered to the joint. The same process was repeated on the other side. The patient tolerated the procedures well. Euflexxa Lot # [id number] Exp Date 01/13/2025 Coding 82438 - Large joint (Bilateral) Additional procedure code (CPT) needed Assessment & Plan Assessment & Plan (1) Osteoarthritis of knees, bilateral: Code(s): M17.0 - Bilateral primary osteoarthritis of knee Category: Medical Plan Patient is status post bilateral Euflexxa injections into the knees. Patient tolerated procedure well and was discharged home in stable condition with discharge instructions. All questions were answered. We will follow-up via telephone or in clinic to assess response to therapy. A follow-up appointment was made during today's visit. Orders: Orders FL guidance in treatment room Today M17.0 - Bilateral primary osteoarthritis of knee Coding Level of Care Code Procedure Only Diagnoses Osteoarthritis of knees, bilateral M17.0 CPT Codes Coding - 32582 Large joint: 24984 - Large joint ([id number])
[2024-02-07 15:38] VITALS: BP 128/82; PULSE 86; RESP 20; O2SAT 96; BMI 38.2
[2024-02-07 15:39] VITALS: BP 126/80; PULSE 81; RESP 18; O2SAT 96
== END 2024-02-07 15:33 | disposition home or self-care (01) ==
LOC: HO.PMCPRC 13:39
PROVIDERS: PCP Student in an Organized Health Care Education/Training Program; Visit Provider Internal Medicine
DX: M17.0 Bilateral primary osteoarthritis of knee (principal)
CPT/HCPCS: 20610; 77002

== ENCOUNTER 2024-02-14 06:28 | Outpatient (REF) | payer MEDICARE, MEDICAID, SELFPAY ==
--- NOTE | ~2024-02-14 | FL_ITS ---
EXAMINATION: XR FLUOROSCOPY WITH IMAGES CLINICAL INFORMATION: Bilateral knee osteoarthritis. COMPARISON: None available. TECHNIQUE: Fluoroscopy Supervised By: Dr. Hood. Fluoroscopy Time: 0.1 min. Cumulative Dose: 0.287 mGy. DAP: 0.0461 Gycm2. Images: 2. FINDINGS: Intraoperative fluoroscopy and spot films were performed during a procedure in the OR. Anterior approach needles are seen in each knee. Some contrast is seen in the knee joints. Please correlate with Dr. Hood' report for complete details. FL/FL guidance in treatment room IMPRESSION: Intraoperative fluoroscopy and spot films were obtained. Please see Dr. Hood' report for complete details.
== END 2024-02-14 06:29 | disposition home or self-care (01) ==
LOC: CF 06:28
PROVIDERS: Visit Provider Internal Medicine
DX: M17.0 Bilateral primary osteoarthritis of knee (principal)
CPT/HCPCS: 20610; Q9967

== ENCOUNTER 2024-02-14 13:59 | Outpatient (AMB) | payer MEDICARE, MEDICAID, SELFPAY ==
--- NOTE | 2024-02-14 15:03 | A.OFFVIS_ITS ---
Intake Visit Reasons: colten euflexxa inj Allergies latex Adverse Reaction (Severe, Verified 01/04/24 08:58) bruising nabumetone Adverse Reaction (Severe, Verified 01/04/24 08:58) esophageal problems oxycodone Adverse Reaction (Severe, Verified 01/04/24 08:58) n/v Sulfa (Sulfonamide Antibiotics) Adverse Reaction (Severe, Verified 01/04/24 08:58) heart palpitations tramadol Adverse Reaction (Severe, Verified 01/04/24 08:58) rash HPI HPI colten euflexxa inj: Details: Patient presents for scheduled procedure. Denies any recent cough, cold, infection, fever or other significant changes in medical history since last office visit. [facility] Medical History (Updated 01/04/24 @ 11:06 by Adam Hood MD) Hx of restrictive lung disease Osteopenia Hx of hepatic disease GERD (gastroesophageal reflux disease) History of polycystic ovarian disease Osteoarthritis of knees, bilateral Morbid obesity Hypothyroidism Chronic pain syndrome HTN (hypertension) Asthma Disorder of sacrum Surgical History Hx of exploratory laparotomy Hx of hysterectomy Hx of appendectomy Hx of abdominal surgery Hx of eye surgery History of sleeve gastrectomy Hx of left cataract extraction Social History Patient Tobacco Use Status: Never used Tobacco Advance Directives Date on File: 11/14/23 Office Procedures Joint Injection/Drain Joint Injection/Drain Details: The knee was visualized using fluoroscopy. A 25 gauge needle was advanced intra- articularly under fluoroscopy and placement was confirmed with Omnipaque 1-2 cc 180 milligrams/mL. Following intra-articular confirmation, the prepackaged Euflexxa syringe containing 2 mL sodium hyaluronate was retrieved and administered to the joint. The same process was repeated on the other side. The patient tolerated the procedures well. Euflexxa Lot # [id number] Exp Date 01/13/2025 Coding 34112 - Large joint Additional procedure code (CPT) needed Assessment & Plan Assessment & Plan (1) Osteoarthritis of knees, bilateral: Code(s): M17.0 - Bilateral primary osteoarthritis of knee Category: Medical Plan Patient is status post bilateral intra-articular Euflexxa injections. Patient tolerated procedure well and was discharged home in stable condition with discharge instructions. All questions were answered. We will follow-up via telephone or in clinic to assess response to therapy. A follow-up appointment was made during today's visit. Orders: Orders FL guidance in treatment room Today M17.0 - Bilateral primary osteoarthritis of knee Coding Level of Care Code Procedure Only Diagnoses Osteoarthritis of knees, bilateral M17.0 CPT Codes Coding - 89924 Large joint: 45600 - Large joint ([id number])
== END 2024-02-14 14:56 | disposition home or self-care (01) ==
LOC: HO.PMCPRC 13:59
PROVIDERS: PCP Student in an Organized Health Care Education/Training Program; Visit Provider Internal Medicine
DX: M17.0 Bilateral primary osteoarthritis of knee (principal)
CPT/HCPCS: 20610; 77002

== ENCOUNTER 2024-02-21 06:06 | Outpatient (REF) | payer MEDICARE, MEDICAID, SELFPAY ==
--- NOTE | ~2024-02-21 | FL_ITS ---
EXAMINATION: XR FLUOROSCOPY WITH IMAGES CLINICAL INFORMATION: Euflexxa injections bilaterally. COMPARISON: None available. TECHNIQUE: Fluoroscopy Supervised By: Dr. Hood. Fluoroscopy Time: 0.1 min. Cumulative Dose: 0.447 mGy. DAP: 0.0653 Gycm2. Images: 2. FINDINGS: Intraoperative fluoroscopy and spot films were performed during a procedure in the OR. [place] are seen overlying both knee joints with intra-articular contrast demonstrated. Please correlate with Dr. Hood' report for complete details. FL/FL guidance in treatment room IMPRESSION: Intraoperative fluoroscopy and spot films were obtained. Please see Dr. Hood' report for complete details.
== END 2024-02-21 06:07 | disposition home or self-care (01) ==
LOC: CF 06:06
PROVIDERS: Visit Provider Internal Medicine
DX: M17.0 Bilateral primary osteoarthritis of knee (principal)
CPT/HCPCS: 20610; Q9967

== ENCOUNTER 2024-02-21 07:40 | Outpatient (AMB) | payer MEDICARE, MEDICAID, SELFPAY ==
--- NOTE | 2024-02-21 08:25 | A.OFFVIS_ITS ---
Vital Signs 02/21/24 09:27 02/21/24 09:28 BP 112/64 131/71 Blood Pressure Location Rt brachial Rt brachial Position Sitting Sitting Respiration 14 16 Pulse 65 65 Pulse Source Pulse Oximeter Pulse Oximeter Pulse Oximetry (%) 98 98 Oxygen Delivery Method Room Air Room Air Intake Visit Reasons: colten euflexxa inj Allergies latex Adverse Reaction (Severe, Verified 01/04/24 08:58) bruising nabumetone Adverse Reaction (Severe, Verified 01/04/24 08:58) esophageal problems oxycodone Adverse Reaction (Severe, Verified 01/04/24 08:58) n/v Sulfa (Sulfonamide Antibiotics) Adverse Reaction (Severe, Verified 01/04/24 08:58) heart palpitations tramadol Adverse Reaction (Severe, Verified 01/04/24 08:58) rash HPI HPI colten euflexxa inj: Details: Patient presents for scheduled procedure. Denies any recent cough, cold, infection, fever or other significant changes in medical history since last office visit. [facility] Medical History (Updated 01/04/24 @ 11:06 by dAam Hood MD) Hx of restrictive lung disease Osteopenia Hx of hepatic disease GERD (gastroesophageal reflux disease) History of polycystic ovarian disease Osteoarthritis of knees, bilateral Morbid obesity Hypothyroidism Chronic pain syndrome HTN (hypertension) Asthma Disorder of sacrum Surgical History Hx of exploratory laparotomy Hx of hysterectomy Hx of appendectomy Hx of abdominal surgery Hx of eye surgery History of sleeve gastrectomy Hx of left cataract extraction Social History Patient Tobacco Use Status: Never used Tobacco Advance Directives Date on File: 11/14/23 Office Procedures Joint Injection/Drain Joint Injection/Drain Details: The knee was visualized using fluoroscopy. A 25 gauge needle was advanced intra- articularly under fluoroscopy and placement was confirmed with Omnipaque 1-2 cc 180 milligrams/mL. Following intra-articular confirmation, the prepackaged Euflexxa syringe containing 2 mL sodium hyaluronate was retrieved and administered to the joint. The same process was repeated on the other side. The patient tolerated the procedures well. Euflexxa Lot # [id number] Exp Date 01/13/2025 Coding 62262 - Large joint (bilateral) Additional procedure code (CPT) needed Assessment & Plan Assessment & Plan (1) Osteoarthritis of knees, bilateral: Code(s): M17.0 - Bilateral primary osteoarthritis of knee Category: Medical Plan Patient is status post bilateral euflexxa knee injections. Patient tolerated procedure well and was discharged home in stable condition with discharge instructions. All questions were answered. We will follow-up via telephone or in clinic to assess response to therapy. A follow-up appointment was made during today's visit. Coding Level of Care Code Procedure Only Diagnoses Osteoarthritis of knees, bilateral M17.0 CPT Codes Coding - 58991 Large joint: 98284 - Large joint ([id number])
[2024-02-21 09:27] VITALS: BP 112/64; PULSE 65; RESP 14; O2SAT 98
[2024-02-21 09:28] VITALS: BP 131/71; PULSE 65; RESP 16; O2SAT 98
== END 2024-02-21 08:40 | disposition home or self-care (01) ==
PROVIDERS: PCP Student in an Organized Health Care Education/Training Program; Visit Provider Internal Medicine
DX: M17.0 Bilateral primary osteoarthritis of knee (principal)
CPT/HCPCS: 20610; 77002

== ENCOUNTER 2024-03-20 10:57 | Outpatient (AMB) | payer MEDICARE, MEDICAID, SELFPAY ==
[2024-03-20 11:09] VITALS: BP 124/75; PULSE 81; O2SAT 97; BMI 40.1
--- NOTE | 2024-03-20 11:09 | A.OFFVIS_ITS ---
Vital Signs 03/20/24 11:09 Height 5 ft 2 in Weight 219 lb BMI 40.1 BP 124/75 Blood Pressure Location Lt brachial Position Sitting Pulse 81 Pulse Source Pulse Oximeter Pulse Oximetry (%) 97 Oxygen Delivery Method Room Air Intake Visit Reasons: s/p 3 rounds euflexxa Allergies latex Adverse Reaction (Severe, Verified 03/20/24 11:11) bruising nabumetone Adverse Reaction (Severe, Verified 03/20/24 11:11) esophageal problems oxycodone Adverse Reaction (Severe, Verified 03/20/24 11:11) n/v Sulfa (Sulfonamide Antibiotics) Adverse Reaction (Severe, Verified 03/20/24 11:11) heart palpitations tramadol Adverse Reaction (Severe, Verified 03/20/24 11:11) rash Medication List - Last Reconciled 03/20/24 by Moira Hankins albuterol sulfate 90 mcg/actuation (Ventolin HFA) inhalation amlodipine 5 mg PO QPM baclofen 10 mg PO TID epinephrine IM gabapentin 100 mg PO TID levothyroxine 50 mcg PO DAILY metformin 1,000 mg PO BID minoxidil 1.25 mg PO DAILY morphine 7.5 mg (1/2 x 15 mg) PO BID PRN oxybutynin chloride ER 15 mg PO DAILY sodium hyaluronate (viscosup) (Euflexxa) 16.8 mg intra-articular QWEEK tirzepatide (Mounjaro) 2.5 mg subcut QWEEK HPI HPI s/p 3 rounds euflexxa: Details: 63-year-old female presenting for follow-up after 3 rounds of hyaluronic acid injections. She reports significant improvement in her left knee pain which is not bothersome at this time. Her right knee infrapatellar pain has resolved. However she reports worsening right knee instability and limitation in her range of motion over the past few days. She is interested in seeing orthopedics to investigate what may be causing her instability and if there is any need for surgical intervention. [facility] Medical History (Updated 01/04/24 @ 11:06 by Adam Hood MD) Hx of restrictive lung disease Osteopenia Hx of hepatic disease GERD (gastroesophageal reflux disease) History of polycystic ovarian disease Osteoarthritis of knees, bilateral Morbid obesity Hypothyroidism Chronic pain syndrome HTN (hypertension) Asthma Disorder of sacrum Surgical History Hx of exploratory laparotomy Hx of hysterectomy Hx of appendectomy Hx of abdominal surgery Hx of eye surgery History of sleeve gastrectomy Hx of left cataract extraction Social History Patient Tobacco Use Status: Never used Tobacco Advance Directives Date on File: 11/14/23 Physical Exam Vital Signs: Last Vital Signs Pulse 81 03/20/24 11:09 BP 124/75 03/20/24 11:09 Pulse Ox 97 03/20/24 11:09 Oxygen Delivery Method Room Air 03/20/24 11:09 BMI result Body Mass Index 40.1 On exam today: Appears afebrile. Alert and oriented. Mood and affect appropriate. Follows and participates in conversation appropriately. Respiratory effort is unlabored. Able to transition from sit to stand unassisted. Ambulates with bilaterally normal heel strike and toe off with the help of her canes. Able to stand and walk on toes and heels. Right knee is not visibly swollen or warm. Limited ultrasound examination in the office did not reveal any obvious Whitehead's cysts or fluid accumulation around the knee. Assessment & Plan Assessment & Plan (1) Osteoarthritis of knees, bilateral: Code(s): M17.0 - Bilateral primary osteoarthritis of knee Category: Medical Plan 63-year-old female with bilateral knee osteoarthritis status post 3 rounds of intra-articular Euflexxa injections under fluoroscopic guidance. She had a good response in the left side but her right knee continues to be bothersome. She is interested in referral to Orthopedics for further investigation of her right knee and assess her candidacy for potential surgical intervention. She requested a referral to [facility] which was provided to the patient. She will follow-up as needed. Orders: Referrals Orthopedics Referral M17.0 - Bilateral primary osteoarthritis of knee Coding Level of Care Code Est Pt Level 3 (85909) Diagnoses Osteoarthritis of knees, bilateral M17.0
== END 2024-03-20 13:00 | disposition home or self-care (01) ==
PROVIDERS: PCP Student in an Organized Health Care Education/Training Program; Visit Provider Internal Medicine
DX: M17.0 Bilateral primary osteoarthritis of knee (principal)
CPT/HCPCS: 99213

== ENCOUNTER → 2024-03-20 10:57 | Outpatient (BNVA) | payer MEDICARE, MEDICAID, SELFPAY | PROVIDERS: PCP Student in an Organized Health Care Education/Training Program; Visit Provider Internal Medicine | DX: M17.0 Bilateral primary osteoarthritis of knee (principal) | CPT/HCPCS: 99212 ==

== ENCOUNTER 2024-09-15 09:03 | Outpatient (AMB) | payer MEDICARE, SELFPAY ==
--- NOTE | 2024-09-15 09:06 | A.OFFVIS_ITS ---
Vital Signs 09/15/24 09:07 Weight 198 lb BP 153/77 H Blood Pressure Location Rt brachial Position Sitting Pulse 76 Pulse Source Pulse Oximeter Pulse Oximetry (%) 99 Oxygen Delivery Method Room Air Intake Visit Reasons: FU to repeat inj/rogelio from 08/22 & 09/10 Intake Note: Room 3 Metal Fabricator Required: No Allergies latex Adverse Reaction (Severe, Verified 09/15/24 09:07) bruising nabumetone Adverse Reaction (Severe, Verified 09/15/24 09:07) esophageal problems oxycodone Adverse Reaction (Severe, Verified 09/15/24 09:07) n/v Sulfa (Sulfonamide Antibiotics) Adverse Reaction (Severe, Verified 09/15/24 09:07) heart palpitations tramadol Adverse Reaction (Severe, Verified 09/15/24 09:07) rash Medication List - Last Reconciled 09/15/24 by Heather Tripathi, THERAPEUTIC RECREATION ASSISTANT albuterol sulfate 90 mcg/actuation (Ventolin HFA) inhalation amlodipine 5 mg PO QPM baclofen 10 mg PO TID epinephrine IM gabapentin 100 mg PO TID levothyroxine 50 mcg PO DAILY metformin 1,000 mg PO BID minoxidil 1.25 mg PO DAILY morphine 7.5 mg (1/2 x 15 mg) PO BID PRN oxybutynin chloride ER 15 mg PO DAILY sodium hyaluronate (viscosup) (Euflexxa) 16.8 mg intra-articular QWEEK tirzepatide (Mounjaro) 2.5 mg subcut QWEEK HPI HPI FU to repeat inj/rogelio from 08/22 & 09/10: Details: History of Present Illness The patient is a 64-year-old female presenting with chronic left sacroiliac joint pain. The pain has been persistent, and the patient reports significant discomfort exacerbated by movement and long-distance ambulation. She previously received an SI joint injection in December 2023, which provided over six months of 80% pain relief. However, the pain has returned, notably interfering with sleep and daily activities. The patient also suffers from bilateral knee osteoarthritis necessitating knee replacement surgery, delayed due to recent treatment for periodontal disease. The severity of the knee pain has progressed to the point where the patient requires crutches at home and a wheelchair for longer distances. Currently, the sacroiliac joint pain is described as excruciating, affecting her mobility and quality of life. Pain Description - Onset & Timing: Chronic and persistent - Quality & Character: Excruciating - Primary Location: Left sacroiliac joint - Radiation: Not specified - Exacerbating Factors: Movement, long-distance ambulation - Alleviating Factors: Previous SI joint injection provided temporary relief - Activities Interference: Significant impact on mobility and sleep Physical Exam - Sacroiliac Joint- Positive compression test on the left - Sacroiliac Joint- Positive thigh thrust test on the left Results Pain Management - Affect: Pain is affecting sleep and daily functioning - Analgesia: Previous SI joint injection provided 6 months of 80% relief, currently seeking repeat injection - Adverse Effects: Not specified - Activities of Daily Living: Substantial limitation; crutches at home, uses wheelchair for long distances - Aberrant Drug Related Behaviors: Not mentioned [facility] Medical History (Updated 01/04/24 @ 11:06 by Adam Hood MD) Hx of restrictive lung disease Osteopenia Hx of hepatic disease GERD (gastroesophageal reflux disease) History of polycystic ovarian disease Osteoarthritis of knees, bilateral Morbid obesity Hypothyroidism Chronic pain syndrome HTN (hypertension) Asthma Disorder of sacrum Surgical History Hx of exploratory laparotomy Hx of hysterectomy Hx of appendectomy Hx of abdominal surgery Hx of eye surgery History of sleeve gastrectomy Hx of left cataract extraction Social History Patient Tobacco Use Status: Never used Tobacco Advance Directives Date on File: 11/14/23 Physical Exam Vital Signs: Last Vital Signs Pulse 76 09/15/24 09:07 BP 153/77 H 09/15/24 09:07 Pulse Ox 99 09/15/24 09:07 Oxygen Delivery Method Room Air 09/15/24 09:07 Assessment & Plan Assessment & Plan (1) Sacroiliac joint dysfunction: Code(s): M53.3 - Sacrococcygeal disorders, not elsewhere classified Category: Medical Plan Plan - Submit a request for authorization for a repeat left sacroiliac joint injection with corticosteroid. - Continued monitoring and follow-up post-procedure for efficacy of pain relief and management. Patient was informed and verbally consented to the use of an ambient scribe for clinic note documentation during this visit. Discussion Notes I discussed the consideration of a repeat sacroiliac joint injection with corticosteroid for ongoing management of her sacroiliac joint dysfunction. The patient acknowledged her previous experience with significant relief and expressed a strong desire for the repeat procedure. I explained the process for authorization, and she was advised that her follow-up will include pain assessment post-injection. She was informed that [facility] will contact her once the authorization is complete, as it may not be finalized today. Patient Instructions - Await a call from [facility] regarding the authorization for the SI joint injection. - Continue using current mobility aids (crutches, wheelchair) as needed. - Monitor pain levels and report any significant changes in symptoms prior to the procedure. Coding Level of Care Code Est Pt Level 3 (44162) Diagnoses Sacroiliac joint dysfunction M53.3
[2024-09-15 09:07] VITALS: BP 153/77; PULSE 76; O2SAT 99
== END 2024-09-15 09:40 | disposition home or self-care (01) ==
PROVIDERS: PCP Student in an Organized Health Care Education/Training Program; Visit Provider Internal Medicine
DX: M53.3 Sacrococcygeal disorders, not elsewhere classified (principal)
CPT/HCPCS: 99213

== ENCOUNTER → 2024-09-15 09:03 | Outpatient (BNVA) | payer MEDICARE, SELFPAY | PROVIDERS: PCP Student in an Organized Health Care Education/Training Program; Visit Provider Internal Medicine | DX: M53.3 Sacrococcygeal disorders, not elsewhere classified (principal) | CPT/HCPCS: 99212 ==

== ENCOUNTER 2024-10-16 06:06 | Outpatient (REF) | payer MEDICARE, SELFPAY ==
--- OUTSIDE RECORDS SUMMARY | 2024-10-16 06:07 | XMS_ITS | Patient Health Record ---
Author Organization [facility] Address [address] [address] Care Team Providers Care Manager Implementation Name Role Phone Moris (RETIRED) Jimmy AGEE Primary Care Provide Mireya Fontana Unavailable [phone] Allergies Allergen (clinical drug ingredient) Drug/Non Drug Allergy documented on EMR Reaction Allergy Type Onset Date Status Iv Contrast Dye (uncoded) Hives Allergy Active nabumetone Nabumetone Esoph Problems Drug Allergy Active oxycodone OxyContin Vomiting Drug Allergy Active Latex Latex Bruises Allergy Active Substance with sulfonamide structure and antibacterial mechanism of action (substance) Sulfa Antibiotics Faint, Heart Racing Drug Allergy Active Reason For Referral No Information Medications Medication SIG (Take, Route, Frequency, Duration) Notes Start Date End Date Status oxyBUTYnin Chloride 5MG XL 1 ORAL DAILY for [facility] Active metFORMIN HCl 500MG 1 ORAL twice daily f or - [facility] 12/17/2013 Active Levoxyl 50MCG 1 ORAL daily for [facility] 12/17/2013 Active Fluticasone Propionate HFA 110 MCG/ACT 1 puff Inhalation Twice a day Active Betamethasone Active Vitamin D3 1000 IU ORAL daily for [facility] 12/17/2013 Active ProAir HFA ORAL for [facility] 12/17/2013 Active Atrovent 18MCG 2 Inhalation four ti mes daily for [facility] 12/17/2013 Active Gabapentin 100 MG 1 capsule Orally Thr ee times a day Active EpiPen Active Minoxidil for Women 2 % 1 application to affected area Externally Twice a day Active Problems Problem Type SNOMED Code ICD Code Onset Dates Problem Status W/U Status Risk Notes Problem Morbid obesity (disorder) (329297245) Morbid (severe) obesity due to excess calories (E66.01) Active confirmed Problem Menopause (881012349) Menopausal and female climacteric states (N95.1) Active confirmed Plan Of Treatment Pending Test Test Name Order Date THIN PREP,HPV,BECKY IF HPV+ (>29YR)(SCRN) 01/22/2018 Insurance Providers Payer Name Payer Address Payer Phone Subscriber Number Group Number Insured Name Patient Relationship to Insured Coverage Start Date Coverage End Date MEDICARE [address] [place], [place] [id number] [phone] [id number] DEMETRIA ELMORE Self - patient is the insured MEDEX [address] [place] [address] [phone] [id number] DEMETRIA ELMORE Self - patient is the insured Medical (General) History Medical History History ICD Code Acute respiratory distress syndrome J80 Osteoarthrosis, unspecified whether gene ralized or localized 715.9 Obstructive sleep apnea (adult) (pediatr ic) G47.33 Hypothyroidism, unspecified E03.9 Gastritis, unspecified, without bleeding K29.70 Polycystic ovarian syndrome E28.2 Functional urinary incontinence R39.81 Carpal tunnel syndrome, right upper limb G56.01 Carpal tunnel syndrome, left upper limb G56.02 Chronic sinusitis, unspecified J32.9 Dyspnea, unspecified R06.00 Unspecified asthma with status asthmatic us J45.902 Edema, unspecified R60.9 Morbid (severe) obesity due to excess ca lories E66.01 Fatty (change of) liver, not elsewhere c lassified K76.0 Menopausal and female climacteric states N95.1 Low grade squamous intraepit helial lesion on cytologic smear of cervix (LGSIL) R87.612 Abscess of vulva N76.4 Disorder of bone density and structure, unspecified M85.9 Surgical History Surgery Date(Month/Year) HYSTERECTOMY EXPLORATORY LAPAROSCOPY APPENDECTOMY LT EYE SURGERY Hospitalization History Reason Date(Month/Year) SEE SURGERY HX
== END 2024-10-16 06:07 | disposition home or self-care (01) ==
LOC: CF 06:06
PROVIDERS: Visit Provider Internal Medicine
DX: Z13.89 Encounter for screening for other disorder (principal)

== ENCOUNTER 2024-10-30 06:03 | Outpatient (REF) | payer MEDICARE, SELFPAY ==
--- NOTE | ~2024-10-30 | FL_ITS ---
EXAMINATION: FL GUIDANCE ONLY HISTORY: M53.3 - Sacrococcygeal disorders, not elsewhere classified COMPARISON: None available. TECHNIQUE: Fluoroscopy time: 0.1 minutes. Cumulative Dose: 5.03 mGy. DAP: 0.0312 mGym2 Images: 2. FINDINGS: Images demonstrate a needle in the region of the left sacroiliac joint. FL/FL guidance in treatment room IMPRESSION: Fluoroscopy during procedure. Please see procedure report for additional information. Electronically signed by: Chandler Dasilva MD 11/03/2024 07:14 AM EDT
--- OUTSIDE RECORDS SUMMARY | 2024-10-30 06:08 | XMS_ITS | Patient Health Record ---
Author Organization [employer] [facility] Address [address] [facility] [address] [place] [address] Care Team Providers Care Caterpillar Mechanic Name Role Phone Moris (RETIRED) Jimmy AGEE Primary Care Provide Mireya Fontana Unavailable [phone] Allergies Allergen (clinical drug ingredient) Drug/Non Drug [...] Chloride 5MG XL 1 ORAL DAILY for [facility] Active metFORMIN HCl 500MG 1 ORAL twice daily f or - [facility] 12/17/2013 Active Levoxyl 50MCG 1 ORAL daily for [facility] 12/17/2013 Active Fluticasone Propionate HFA 110 MCG/ACT 1 puff Inhalation Twice a day Active Betamethasone Active Vitamin D3 1000 IU ORAL daily for [facility] 12/17/2013 Active ProAir HFA ORAL for [facility] 12/17/2013 Active Atrovent 18MCG 2 Inhalation four ti mes daily for [facility] 12/17/2013 Active Gabapentin 100 MG 1 capsule Orally Thr ee times a day Active EpiPen Active Minoxidil for Women 2 % 1 application to affected area Externally Twice a day Active Problems Problem Type SNOMED Code ICD Code Onset Dates Problem Status W/U Status Risk Notes Problem Morbid obesity (disorder) (756310912) Morbid (severe) obesity due to excess calories (E66.01) Active confirmed Problem Menopause (134146882) Menopausal and female climacteric states (N95.1) Active confirmed Plan Of Treatment Pending Test Test Name Order Date THIN PREP,HPV,BECKY IF HPV+ (>29YR)(SCRN) 01/22/2018 Insurance Providers Payer Name Payer Address Payer Phone Subscriber Number Group Number Insured Name Patient Relationship to Insured Coverage Start Date Coverage End Date MEDICARE [address] [place], [place] [id number] [phone] [id number] DEMETRIA ELMORE Self - patient is the insured MEDEX [address] [place] [address] [phone] [id number] DEMETRIA ELMORE Self - patient is [...]
== END 2024-10-30 06:04 | disposition home or self-care (01) ==
LOC: CF 06:03
PROVIDERS: Visit Provider Internal Medicine
DX: M53.3 Sacrococcygeal disorders, not elsewhere classified (principal)
CPT/HCPCS: 27096; J2003; J2795; J3301

== ENCOUNTER 2024-10-30 09:00 | Outpatient (AMB) | payer MEDICARE, SELFPAY ==
--- NOTE | 2024-10-30 09:01 | MHC.OFFVIS ---
Vital Signs 10/30/24 09:09 10/30/24 10:08 BP 107/72 118/74 Blood Pressure Location Lt brachial Lt brachial Position Sitting Sitting Pulse 88 88 Pulse Source Pulse Oximeter Pulse Oximeter Pulse Oximetry (%) 99 97 Oxygen Delivery Method Room Air Room Air Comment Pre-Op Post-Op Intake Visit Reasons: Left theraputic SIJ inj Allergies latex Adverse Reaction (Severe, Verified 10/30/24 09:01) bruising nabumetone Adverse Reaction (Severe, Verified 10/30/24 09:01) esophageal problems oxycodone Adverse Reaction (Severe, Verified 10/30/24 09:01) n/v Sulfa (Sulfonamide Antibiotics) Adverse Reaction (Severe, Verified 10/30/24 09:01) heart palpitations tramadol Adverse Reaction (Severe, Verified 10/30/24 09:01) rash HPI HPI Left theraputic SIJ inj: Details: Patient presents for scheduled procedure. Denies any recent cough, cold, infection, fever or other significant changes in medical history since last office visit. [facility] Medical History (Updated 01/04/24 @ 11:06 by Adam Hood MD) Hx of restrictive lung disease Osteopenia Hx of hepatic disease GERD (gastroesophageal reflux disease) History of polycystic ovarian disease Osteoarthritis of knees, bilateral Morbid obesity Hypothyroidism Chronic pain syndrome HTN (hypertension) Asthma Disorder of sacrum Surgical History Hx of exploratory laparotomy Hx of hysterectomy Hx of appendectomy Hx of abdominal surgery Hx of eye surgery History of sleeve gastrectomy Hx of left cataract extraction Social History Patient Tobacco Use Status: Never used Tobacco Advance Directives Date on File: 11/14/23 Physical Exam Vital Signs: Last Vital Signs Pulse 88 10/30/24 10:08 BP 118/74 10/30/24 10:08 Pulse Ox 97 10/30/24 10:08 Oxygen Delivery Method Room Air 10/30/24 10:08 Office Procedures AMB Joint Injection/Aspiration Joint Injection/Aspiration Details: Sacroiliac Joint Injection, Left The procedure, its benefits, and its risks were explained and written informed consent was obtained from the patient. Immediately prior to starting the procedure, a time-out safety check was conducted. The patient's identification, procedure name, procedure site, and procedure laterality were confirmed with the patient. ? Patient was placed prone on the fluoroscopy table and the lumbosacral area was prepped using ChloraPrep and draped with sterile drapein standard fashion. The C-arm was rotated in a contralateral oblique fashion until the medial border of the iliac crest no longer foreshadowed the posterior sacroiliac joint line. The skin and subcutaneous tissue was anesthetized using 1 mL of 0.75% plain lidocaine with 1.5-inch 25-gauge needle in the middle region of the joint line.? A 3.5-inch 22-gauge spinal needle with small bend on the tip was slowly advanced towards the joint line, coaxial to the x-ray beam. Once bony content was obtained, the needle was easily slid into the intra-articular space.? Intra-articular needle position was confirmed using lateral fluoroscopy.? A total volume of 2.5mL of solution containing 40 mg triamcinilone and rest 0.5% of ropivacaine was injected intra-articularly. The stylet was reinserted and needle was removed. The patient tolerated the procedure well. Patient denied any lower extremity weakness or numbness. Patient was observed for 30 min and was discharged after fulfilling the standard discharge criteria. Coding 60520 - Sacroiliac Procedure code (CPT) selection complete Assessment & Plan Assessment & Plan (1) Sacroiliac joint dysfunction: Code(s): M53.3 - Sacrococcygeal disorders, not elsewhere classified Category: Medical Plan Patient is status post left SIJ injection. Patient tolerated procedure well and was discharged home in stable condition with discharge instructions. All questions were answered. We will follow-up via telephone or in clinic to assess response to therapy. A follow-up appointment was made during today's visit. Orders: Orders FL guidance in treatment room Today M53.3 - Sacrococcygeal disorders, not elsewhere classified Coding Level of Care Code Procedure Only Diagnoses Sacroiliac joint dysfunction M53.3 CPT Codes Coding - Joint 9: 77271 - Sacroiliac ([id number])
[2024-10-30 09:09] VITALS: BP 107/72; PULSE 88; O2SAT 99
[2024-10-30 10:08] VITALS: BP 118/74; PULSE 88; O2SAT 97
== END 2024-10-30 10:11 | disposition home or self-care (01) ==
LOC: HO.PMCPRC 09:00
PROVIDERS: PCP Student in an Organized Health Care Education/Training Program; Visit Provider Internal Medicine
DX: M53.3 Sacrococcygeal disorders, not elsewhere classified (principal)
CPT/HCPCS: 27096

== ENCOUNTER 2024-11-10 09:05 | Outpatient (AMB) | payer MEDICARE, SELFPAY ==
--- NOTE | 2024-11-10 09:11 | A.OFFVIS_ITS ---
Vital Signs 11/10/24 09:14 Height 5 ft 2 in Weight 187 lb BMI 34.2 BP 131/82 Blood Pressure Location Rt brachial Position Sitting Respiration 16 Pulse 79 Pulse Source Pulse Oximeter Pulse Oximetry (%) 99 Oxygen Delivery Method Room Air Intake Visit Reasons: s/p left SIJ inj Gasket Winder Required: No Allergies isopropyl alcohol [From ChloraPrep Clear] Allergy (Intermediate, Verified 11/10/24 09:35) Blister latex Adverse Reaction (Severe, Verified 11/10/24 09:15) bruising nabumetone Adverse Reaction (Severe, Verified 11/10/24 09:15) esophageal problems oxycodone Adverse Reaction (Severe, Verified 11/10/24 09:15) n/v Sulfa (Sulfonamide Antibiotics) Adverse Reaction (Severe, Verified 11/10/24 09:15) heart palpitations tramadol Adverse Reaction (Severe, Verified 11/10/24 09:15) rash Medication List - Last Reconciled 11/10/24 by Shanti Juarez LPN albuterol sulfate 90 mcg/actuation (Ventolin HFA) inhalation amlodipine 5 mg PO QPM baclofen 10 mg PO TID epinephrine IM gabapentin 100 mg PO TID levothyroxine 50 mcg PO DAILY metformin 1,000 mg PO BID minoxidil 1.25 mg PO DAILY morphine 7.5 mg (1/2 x 15 mg) PO BID PRN oxybutynin chloride ER 15 mg PO DAILY sodium hyaluronate (viscosup) (Euflexxa) 16.8 mg intra-articular QWEEK tirzepatide (Mounjaro) 2.5 mg subcut QWEEK HPI HPI s/p left SIJ inj: Details: History of Present Illness The patient is a 64-year-old female presenting for follow-up regarding management of her sacroiliac joint dysfunction and evaluation of pain recurrence and new pain symptoms. Post a sacroiliac joint injection, she reports intermittent radicular-like leg pain not typical of previous responses, suggesting possible lumbar radiculopathy. Increased sensitivity resulted in a reaction to Chloraprep at the injection site, which she treated with topical agents after consultation with her PCP's office. For her right knee osteoarthritis, identified as severe requiring surgical intervention, she is currently delayed due to another unrelated health concern. Mobility is severely impacted, requiring use of crutches and knee braces. Left knee pain has recently developed, although it remains untreated pending management of more pressing health issues. Her functional mobility remains significantly impaired. Pain Description - Onset and timing: Intermittent post-injection, recurring three times. - Quality and character: Shooting pain down the leg. - Primary location: Radiating from the sacroiliac region, down the leg. - Specific factors: - Exacerbating: Activity possibly linked to lumbar issues. - Relieving: Temporary relief from injections, use of mobility aids for knee pain. - Interference with activities: Limits mobility, requiring wheelchair use for long distances. Physical Exam - Appears afebrile. - Alert and oriented. - Mood and affect appropriate. - Follows and participates in conversation appropriately. - Respiratory effort is unlabored. - Able to transition from sit to stand unassisted. - Ambulates with bilaterally normal heel strike and toe off. - Able to stand and walk on toes and heels. Results - Labs, Tests and Diagnostics: - Previous sacroiliac joint injection. Pain Management - Affect: Limited mobility, causing frustration and restricting activities of daily living. - Analgesia: Periodic pain with intermittent recurrence post joint injection. - Adverse Effects: Rash due to Chloraprep reaction, no active adverse effects reported from analgesics. - Activities of Daily Living: Uses crutches, knee braces, and wheelchair for long distances due to pain and mobility limitation. - Aberrant Drug-Related Behaviors: No behaviors reported. [facility] Medical History (Updated 01/04/24 @ 11:06 by Adam Hood MD) Hx of restrictive lung disease Osteopenia Hx of hepatic disease GERD (gastroesophageal reflux disease) History of polycystic ovarian disease Osteoarthritis of knees, bilateral Morbid obesity Hypothyroidism Chronic pain syndrome HTN (hypertension) Asthma Disorder of sacrum Surgical History Hx of exploratory laparotomy Hx of hysterectomy Hx of appendectomy Hx of abdominal surgery Hx of eye surgery History of sleeve gastrectomy Hx of left cataract extraction Social History Patient Tobacco Use Status: Never used Tobacco Advance Directives Date on File: 11/14/23 Physical Exam Vital Signs: Last Vital Signs Pulse 79 11/10/24 09:14 Resp 16 11/10/24 09:14 BP 131/82 11/10/24 09:14 Pulse Ox 99 03/17/25 09:14 Oxygen Delivery Method Room Air 11/10/24 09:14 BMI result Body Mass Index 34.2 Assessment & Plan Assessment & Plan (1) Osteoarthritis of knees, bilateral: Code(s): M17.0 - Bilateral primary osteoarthritis of knee Category: Medical (2) Sacroiliac joint dysfunction: Code(s): M53.3 - Sacrococcygeal disorders, not elsewhere classified Category: Medical Plan Plan The patient's sacroiliac joint pain showed improvement following injection, but intermittent lumbar radiculopathy symptoms may necessitate future interventions such as epidural steroid injections. Noted allergic reactions require her to avoid Chloraprep. Her knee osteoarthritis surgery is pending periodontal treatment. Conservative treatments like knee braces, crutches, and possibly injections may aid in current knee pain management. Introducing simple physical exercises may help mitigate some symptoms. Patient was informed and verbally consented to the use of an ambient scribe for clinic note documentation during this visit. Discussion Notes Discussed were the possible causes of recurrent pain, including the likelihood of lumbar nerve involvement suggested by radicular-like symptoms. The benefits and risks of proposed conservative management strategies for her knee pain, such as injections and tailored exercises, were explained. I covered potential complications of surgical intervention until her periodontal disease is adequately managed. Alternative methods for alleviating pain, given her history of hypersensitivity, were considered. Future procedures, including an epidural steroid injection, were discussed depending on her progress in the coming months. Patient Instructions - Monitor for any continued or worsening pain, particularly in the leg or back. - Avoid Chloraprep due to known reaction. - Continue using mobility aids like crutches and braces as needed. - Engage in stretching exercises as tolerated to maintain flexibility. - Await clearance for knee replacement surgery post periodontal treatment. - Report any unusual symptoms or allergic reactions immediately. - Follow oral hygiene and treatment plans to expedite periodontal treatment completion. Coding Level of Care Code Est Pt Level 3 (65837) Diagnoses Osteoarthritis of knees, bilateral M17.0 Sacroiliac joint dysfunction M53.3
[2024-11-10 09:14] VITALS: BP 131/82; PULSE 79; RESP 16; O2SAT 99; BMI 34.2
== END 2024-11-10 09:42 | disposition home or self-care (01) ==
LOC: HO.PMC 09:05
PROVIDERS: PCP Student in an Organized Health Care Education/Training Program; Visit Provider Internal Medicine
DX: M17.0 Bilateral primary osteoarthritis of knee (principal); M53.3 Sacrococcygeal disorders, not elsewhere classified
CPT/HCPCS: 99213

== ENCOUNTER → 2024-11-10 09:05 | Outpatient (BNVA) | payer MEDICARE, SELFPAY | PROVIDERS: PCP Student in an Organized Health Care Education/Training Program; Visit Provider Internal Medicine | DX: M17.0 Bilateral primary osteoarthritis of knee (principal); M53.3 Sacrococcygeal disorders, not elsewhere classified | CPT/HCPCS: 99212 ==

== ENCOUNTER 2024-12-19 08:51 | Outpatient (AMB) | payer MEDICARE, SELFPAY ==
--- OUTSIDE RECORDS SUMMARY | 2024-12-19 08:57 | XMS_ITS | Patient Health Record ---
Author Organization [facility] Address [address] [place] [address] Care Team Providers Care General Clerk Name Role Phone Moris (RETIRED) Jimmy AGEE Primary Care Provide Mireya Fontana Unavailable [phone] Allergies Allergen (clinical drug ingredient) Drug/Non Drug [...] Chloride 5MG XL [address] [facility] Active metFORMIN HCl 500MG 1 ORAL twice daily f or - [facility] 12/17/2013 Active Levoxyl 50MCG [address] [facility] 12/17/2013 Active Fluticasone Propionate HFA 110 MCG/ACT 1 puff Inhalation Twice a day Active Betamethasone Active Vitamin D3 1000 IU ORAL daily for [facility] 12/17/2013 Active ProAir HFA ORAL for [facility] 12/17/2013 Active Atrovent 18MCG 2 Inhalation four ti mes daily for [facility] 12/17/2013 Active Gabapentin 100 MG 1 capsule Orally Thr ee times a day Active EpiPen Active Minoxidil for Women 2 % 1 application to affected area Externally Twice a day Active Problems Problem Type SNOMED Code ICD Code Onset Dates Problem Status W/U Status Risk Notes Problem Morbid obesity (disorder) (853807999) Morbid (severe) obesity due to excess calories (E66.01) Active confirmed Problem Menopause (551058968) Menopausal and female climacteric states (N95.1) Active confirmed Plan Of Treatment Pending Test Test Name Order Date THIN PREP,HPV,BECKY IF HPV+ (>29YR)(SCRN) 01/22/2018 Insurance Providers Payer Name Payer Address Payer Phone Subscriber Number Group Number Insured Name Patient Relationship to Insured Coverage Start Date Coverage End Date MEDICARE [address] [place], [place] [id number] [phone] [id number] DEMETRIA ELMORE Self - patient is the insured MEDEX [address] [place] [address] [phone] [id number] DEMETRIA ELMORE Self - patient is [...]
--- NOTE | 2024-12-19 09:02 | A.OFFVIS_ITS ---
Vital Signs 12/19/24 09:04 Height 5 ft 2 in Weight 181 lb BMI 33.1 BP 125/69 Blood Pressure Location Lt brachial Position Sitting Respiration 16 Pulse 67 Pulse Source Pulse Oximeter Pulse Oximetry (%) 98 Oxygen Delivery Method Room Air Intake Visit Reasons: B/l Knee Pain, Procedure Discussion/rogelio 12/12 Hematology Supervisor Required: No Allergies isopropyl alcohol [From ChloraPrep Clear] Allergy (Intermediate, Verified 12/19/24 09:05) Blister latex Adverse Reaction (Severe, Verified 12/19/24 09:05) bruising nabumetone Adverse Reaction (Severe, Verified 12/19/24 09:05) esophageal problems oxycodone Adverse Reaction (Severe, Verified 12/19/24 09:05) n/v Sulfa (Sulfonamide Antibiotics) Adverse Reaction (Severe, Verified 12/19/24 09 :05) heart palpitations tramadol Adverse Reaction (Severe, Verified 12/19/24 09:05) rash Medication List - Last Reconciled 12/19/24 by Shanti Juarez LPN albuterol sulfate 90 mcg/actuation (Ventolin HFA) inhalation amlodipine 5 mg PO QPM baclofen 10 mg PO TID epinephrine IM gabapentin 100 mg PO TID levothyroxine 50 mcg PO DAILY metformin 1,000 mg PO BID minoxidil 1.25 mg PO DAILY morphine 7.5 mg (1/2 x 15 mg) PO BID PRN oxybutynin chloride ER 15 mg PO DAILY sodium hyaluronate (viscosup) (Euflexxa) 16.8 mg intra-articular QWEEK tirzepatide (Mounjaro) 2.5 mg subcut QWEEK HPI HPI B/l Knee Pain, Procedure Discussion/rogelio 12/12: Details: History of Present Illness The patient is a 64-year-old female presenting with bilateral knee pain and lumbar radiculopathy. Her knee pain particularly affects mobility and daily activities, with the right knee experiencing pain that extends to the posterior part. The pain has increased in severity, impacting her ability to engage in exercise, which she enjoys. She anticipates knee replacement surgery but it is postponed until completion of ongoing dental procedures for periodontal disease. The patient also complains of back pain radiating to the left leg, intensified with walking or standing. A history of severe spinal stenosis at L4-5 contributes to her symptoms. Persistent trigeminal neuralgia adds to her dis comfort, with recent exacerbations. She has lost significant weight on medication, aiming to further reduce weight through exercises like water-based activities. Previous interventions, including cortisone injections, have seen limited success. Pain Description - Onset: Gradual worsening over time - Quality: Dull and aching in the knees; burning and shooting down the left leg - Primary location: Bilateral knees, predominantly right knee; lower back radiating to the left leg - Radiation: Right knee pain extending to posterior knee; lumbar pain radiating down the left leg - Exacerbating factors: Extended walking, standing - Alleviating factors: Rest, use of mobility aids such as a scooter - Functional interference: Impacts mobility, exercise routine, daily activities Physical Exam - Musculoskeletal- Positive straight leg raise on the left side indicating lumbar radiculopathy - Appears afebrile. - Alert and oriented. - Mood and affect appropriate. - Follows and participates in conversation appropriately. - Respiratory effort is unlabored. Pain Management - Affect: Pain-related frustration, limitations on lifestyle, anxiety due to inability to engage in exercise and activities - Analgesia: Cortisone injections previously attempted, Mounjaro for weight loss - Adverse Effects: None reported - Activities of Daily Living: Pain affects walking, exercise ability, daily routines; frustration from using a wheelchair - Aberrant Drug Related Behaviors: None reported [facility] Medical History (Updated 01/04/24 @ 11:06 by Adam Hood MD) Hx of restrictive lung disease Osteopenia Hx of hepatic disease GERD (gastroesophageal reflux disease) History of polycystic ovarian disease Osteoarthritis of knees, bilateral Morbid obesity Hypothyroidism Chronic pain syndrome HTN (hypertension) Asthma Disorder of sacrum Surgical History Hx of exploratory laparotomy Hx of hysterectomy Hx of appendectomy Hx of abdominal surgery Hx of eye surgery History of sleeve gastrectomy Hx of left cataract extraction Social History Patient Tobacco Use Status: Never used Tobacco Advance Directives Date on File: 11/14/23 Physical Exam Vital Signs: Last Vital Signs Pulse 67 12/19/24 09:04 Resp 16 12/19/24 09:04 BP 125/69 12/19/24 09:04 Pulse Ox 98 12/19/24 09:04 Oxygen Delivery Method Room Air 12/19/24 09:04 BMI result Body Mass Index 33.1 Assessment & Plan Assessment & Plan (1) Osteoarthritis of knees, bilateral: Code(s): M17.0 - Bilateral primary osteoarthritis of knee Category: Medical (2) Spinal stenosis, lumbar region with neurogenic claudication: Code(s): M48.062 - Spinal stenosis, lumbar region with neurogenic claudication Category: Medical (3) Lumbar radiculopathy: Code(s): M54.16 - Radiculopathy, lumbar region Category: Medical Plan Plan - Administer left L3-4 epidural steroid injection to alleviate lumbar radiculopathy pain. - Consider further imaging with MRI if epidural intervention proves ineffective. - Consult orthopedic surgeon for an alternative brace solution due to weight loss. - Monitor trigeminal neuralgia symptoms, and consider surgical consultation. Patient was informed and verbally consented to the use of an ambient scribe for clinic note documentation during this visit. Discussion Notes During this consultation, I discussed with the patient the plan to administer a left intralaminar L3-4 epidural steroid injection to manage her lumbar radiculopathy associated with lumbar stenosis. I explained the potential benefi ts of this intervention in reducing her back and radicular pain. Furthermore, we reviewed surgical options, including decompression, should the epidural steroid injections fail to provide adequate relief. We also discussed the ongoing management of her bilateral knee pain, considering her weight loss and the need for replacement of her knee brace. The potential timing of her knee replacement surgery, influenced by necessary dental procedures, was outlined. I also addressed the management of her trigeminal neuralgia, suggesting to reassess potential surgical options if her symptoms persist. Patient Instructions - Await our office call to schedule the lumbar steroid injection. - Continue using mobility aids as needed to avoid exacerbating knee and back pain. - Contact us if the back or knee pain significantly worsens, or if you experience new symptoms. - Follow up with your dentist to expedite completion of dental care ahead of knee surgery. - Resume water-based activities as tolerated, ensuring they don't increase pain. - Await results from upcoming MRI for further guidance about trigeminal neuralgia management. Coding Level of Care Code Est Pt Level 4 (70787) Diagnoses Osteoarthritis of knees, bilateral M17.0 Spinal stenosis, lumbar region with neurogenic claudication M48.062 Lumbar radiculopathy M54.16
[2024-12-19 09:04] VITALS: BP 125/69; PULSE 67; RESP 16; O2SAT 98; BMI 33.1
== END 2024-12-19 10:20 | disposition home or self-care (01) ==
LOC: HO.PMC 08:52
PROVIDERS: PCP Student in an Organized Health Care Education/Training Program; Visit Provider Internal Medicine
DX: M17.0 Bilateral primary osteoarthritis of knee (principal); M48.062 Spinal stenosis, lumbar region with neurogenic claudication; M54.16 Radiculopathy, lumbar region
CPT/HCPCS: 99214

== ENCOUNTER → 2024-12-19 08:51 | Outpatient (BNVA) | payer MEDICARE, SELFPAY | PROVIDERS: PCP Student in an Organized Health Care Education/Training Program; Visit Provider Internal Medicine | DX: M17.0 Bilateral primary osteoarthritis of knee (principal); M48.062 Spinal stenosis, lumbar region with neurogenic claudication; M54.16 Radiculopathy, lumbar region | CPT/HCPCS: 99212 ==

== ENCOUNTER 2025-01-01 06:05 | Outpatient (REF) | payer MEDICARE, SELFPAY ==
--- NOTE | ~2025-01-01 | FL_ITS ---
EXAMINATION: FL GUIDANCE ONLY HISTORY: M54.16 - Radiculopathy, lumbar region COMPARISON: None available. TECHNIQUE: Fluoroscopy time: 0.1 minutes. Cumulative Dose: 7.02 mGy. DAP: 0.0815 mGym2 Images: 2. FINDINGS: AP and lateral spot films of the lumbar spine demonstrate a needle in place. FL/FL guidance in treatment room IMPRESSION: Fluoroscopy during procedure. Please see procedure report for additional information. Electronically signed by: Chandler Dasilva MD 01/01/2025 02:15 PM EDT
--- OUTSIDE RECORDS SUMMARY | 2025-01-01 06:09 | XMS_ITS | Patient Health Record ---
Author Organization [facility] Address [address] [place] [address] Care Team Providers Care Carrier Loader Name Role Phone Moris (RETIRED) Jimmy AGEE Primary Care Provide Mireya Fontana Unavailable [phone] Allergies Allergen (clinical drug ingredient) Drug/Non Drug [...] Chloride 5MG XL 1 ORAL DAILY for [facility] Active metFORMIN HCl 500MG 1 ORAL twice daily f or - [facility] 12/17/2013 Active Levoxyl 50MCG 1 ORAL daily for [facility] 12/17/2013 Active Fluticasone Propionate HFA 110 MCG/ACT 1 puff Inhalation Twice a day Active Betamethasone Active Vitamin D3 1000 IU ORAL daily for [facility] 12/17/2013 Active ProAir HFA ORAL for [facility] 12/17/2013 Active Atrovent 18MCG 2 Inhalation four ti mes daily for [facility] 12/17/2013 Active Gabapentin 100 MG 1 capsule Orally Thr ee times a day Active EpiPen Active Minoxidil for Women 2 % 1 application to affected area Externally Twice a day Active Problems Problem Type SNOMED Code ICD Code Onset Dates Problem Status W/U Status Risk Notes Problem Morbid obesity (disorder) (231975653) Morbid (severe) obesity due to excess calories (E66.01) Active confirmed Problem Menopause (650664170) Menopausal and female climacteric states (N95.1) Active confirmed Plan Of Treatment Pending Test Test Name Order Date THIN PREP,HPV,BECKY IF HPV+ (>29YR)(SCRN) 01/22/2018 Insurance Providers Payer Name Payer Address Payer Phone Subscriber Number Group Number Insured Name Patient Relationship to Insured Coverage Start Date Coverage End Date MEDICARE [address] [place], [place] [id number] [phone] [id number] DEMETRIA ELMORE Self - patient is the insured MEDEX [address] [place] [address] [phone] [id number] DEMETRIA ELMORE Self - patient is [...]
== END 2025-01-01 06:06 | disposition home or self-care (01) ==
LOC: CF 06:05
PROVIDERS: Visit Provider Internal Medicine
DX: M54.16 Radiculopathy, lumbar region (principal)
CPT/HCPCS: 62323; J1100; J2003; J3301; Q9967

== ENCOUNTER 2025-01-01 08:58 | Outpatient (AMB) | payer MEDICARE, SELFPAY ==
--- NOTE | 2025-01-01 09:01 | MHC.OFFVIS ---
Vital Signs 01/01/25 09:02 01/01/25 09:49 Height 5 ft 2 in 5 ft 2 in BP 109/62 102/64 Blood Pressure Location Lt brachial Rt brachial Position Sitting Sitting Pulse 70 66 Pulse Source Pulse Oximeter Pulse Oximeter Pulse Oximetry (%) 99 98 Oxygen Delivery Method Room Air Room Air Intake Visit Reasons: L3-L4 parasagittal interlaminar FRANK Allergies isopropyl alcohol [From ChloraPrep Clear] Allergy (Intermediate, Verified 01/01/25 09:09) Blister latex Adverse Reaction (Severe, Verified 01/01/25 09:09) bruising nabumetone Adverse Reaction (Severe, Verified 01/01/25 09:09) esophageal problems oxycodone Adverse Reaction (Severe, Verified 01/01/25 09:09) n/v Sulfa (Sulfonamide Antibiotics) Adverse Reaction (Severe, Verified 01/01/25 09:09) heart palpitations tramadol Adverse Reaction (Severe, Verified 01/01/25 09:09) rash HPI HPI L3-L4 parasagittal interlaminar FRANK: Details: Patient presents for scheduled procedure. Denies any recent cough, cold, infection, fever or other significant changes in medical history since last office visit. [facility] Medical History (Updated 01/04/24 @ 11:06 by Adam Hood MD) Hx of restrictive lung disease Osteopenia Hx of hepatic disease GERD (gastroesophageal reflux disease) History of polycystic ovarian disease Osteoarthritis of knees, bilateral Morbid obesity Hypothyroidism Chronic pain syndrome HTN (hypertension) Asthma Disorder of sacrum Surgical History Hx of exploratory laparotomy Hx of hysterectomy Hx of appendectomy Hx of abdominal surgery Hx of eye surgery History of sleeve gastrectomy Hx of left cataract extraction Social History Patient Tobacco Use Status: Never used Tobacco Advance Directives Date on File: 11/14/23 Physical Exam Vital Signs: Last Vital Signs Pulse 70 01/01/25 09:02 BP 109/62 01/01/25 09:02 Pulse Ox 99 01/01/25 09:02 Oxygen Delivery Method Room Air 01/01/25 09:02 Office Procedures AMB Joint Injection/Aspiration Joint Injection/Aspiration Details: Interlaminar epidural steroid injection, L3/4, Left parasaggital After obtaining written consent, pre-procedure blood pressure and heart rate were stable and recorded in the nursing record. The patient was placed in the prone position. The lumbar area was widely prepped with chloraprep and draped in sterile fashion. Fluoroscopic guidance was used to identify the desired interlaminar space and for needle placement. Subcutaneous 0.5% lidocaine was used to anesthetize the skin overlying the target. A 20-gauge Marquis needle was advanced to the epidural space using loss of resistance to contrast technique under fluoroscopic AP and contralateral oblique views. There was no evidence of heme or CSF and no paresthesias were elicited with needle placement. Confirmation of epidural needle placement was performed with 1cc of omnipaque 180. Next 3 ml 0.5% lidocaine mixed with 80 mg triamcinilone was administered epidurally with no pain elicited on injection. The needle tract tubing was then cleared with 1 ml of 0.5% lidocaine. The needle was removed, skin cleansed and a sterile bandage was applied. The patient tolerated the procedure well and no complications were encountered. Following the procedure the patient's vital signs were stable. The patient was discharged home in good condition with post-procedural instructions. Time Out: Immediately prior to the procedure, the following was verbally confirmed that there is a signed consent form and that the correct patient, planned procedure, site and side are consistent with documentation and that necessary equipment and/or blood products are available prior to the start of the case. Complications: none EBL: <2 cc Coding 88451 - Caudal/Lumbar Epidural/Interlaminar with fluoroscopy Procedure code (CPT) selection complete Assessment & Plan Assessment & Plan (1) Lumbar radiculopathy: Code(s): M54.16 - Radiculopathy, lumbar region Category: Medical Plan Patient is status post left parasagittal L3/4 interlaminar FRANK. Patient tolerated procedure well and was discharged home in stable condition with discharge instructions. All questions were answered. We will follow-up via telephone or in clinic to assess response to therapy. A follow-up appointment was made during today's visit. Orders: Orders FL guidance in treatment room Today Anette Briggs APRN, JOJO M54.16 - Radiculopathy, lumbar region AMB Joint Injection/Aspiration Today Adam Hood MD M54.16 - Radiculopathy, lumbar region Coding Level of Care Code Procedure Only Diagnoses Lumbar radiculopathy M54.16 CPT Codes Coding - Joint 11: 80386 - Caudal/Lumbar Epidural/Interlaminar with fluoroscopy ([id number])
[2025-01-01 09:02] VITALS: BP 109/62; PULSE 70; O2SAT 99
[2025-01-01 09:49] VITALS: BP 102/64; PULSE 66; O2SAT 98
== END 2025-01-01 09:50 | disposition home or self-care (01) ==
LOC: HO.PMCPRC 08:58
PROVIDERS: PCP Student in an Organized Health Care Education/Training Program; Visit Provider Internal Medicine
DX: M54.16 Radiculopathy, lumbar region (principal)
CPT/HCPCS: 62323

== ENCOUNTER 2025-01-28 10:03 | Outpatient (AMB) | payer MEDICARE, SELFPAY ==
--- NOTE | 2025-01-28 10:04 | A.OFFVIS_ITS ---
Vital Signs 01/28/25 10:08 Height 5 ft 2 in Weight 175 lb BMI 32.0 BP 126/73 Blood Pressure Location Lt brachial Position Sitting Respiration 16 Pulse 89 Pulse Source Pulse Oximeter Pulse Oximetry (%) 98 Oxygen Delivery Method Room Air Intake Visit Reasons: s/p L3-L4 interlaminar FRANK Coater Required: No Allergies isopropyl alcohol [From ChloraPrep Clear] Allergy (Intermediate, Verified 01/28/25 10:09) Blister latex Adverse Reaction (Severe, Verified 01/28/25 10:09) bruising nabumetone Adverse Reaction (Severe, Verified 01/28/25 10:09) esophageal problems oxycodone Adverse Reaction (Severe, Verified 01/28/25 10:09) n/v Sulfa (Sulfonamide Antibiotics) Adverse Reaction (Severe, Verified 01/28/25 10:09) heart palpitations tramadol Adverse Reaction (Severe, Verified 01/28/25 10:09) rash Medication List - Last Reconciled 01/28/25 by Shanti Juarez LPN albuterol sulfate 90 mcg/actuation (Ventolin HFA) inhalation amlodipine 5 mg PO QPM baclofen 10 mg PO TID epinephrine IM gabapentin 100 mg PO TID levothyroxine 50 mcg PO DAILY metformin 1,000 mg PO BID minoxidil 1.25 mg PO DAILY morphine 7.5 mg (1/2 x 15 mg) PO BID PRN oxybutynin chloride ER 15 mg PO DAILY sodium hyaluronate (viscosup) (Euflexxa) 16.8 mg intra-articular QWEEK tirzepatide (Mounjaro) 15 mg subcut QWEEK HPI HPI s/p L3-L4 interlaminar FRANK: Details: History of Present Illness The patient is a 64-year-old female presenting with chronic left sacroiliac (SI) joint pain. The pain was initially managed with cortisone injections, providing temporary relief, but there are concerns about long-term corticosteroid use affecting overall health. About four months ago, she began experiencing symptoms consistent with sciatica, which was treated with interlaminar epidural steroid injections, resulting in temporary improvement. She describes the pain primarily in her left SIJ region, radiating into her buttock, initially extending into a sciatica pattern, with no specific exacerbating activities. The patient also reports ongoing left knee pain, with a possible timeline of onset being several months prior, worsening despite past interventions. The knee brace she uses is now ill-fitting due to significant weight loss. Additionally, she has had a past traumatic incident involving a nerve block for pain management. She expresses concern regarding continued cortisone injections and seeks alternative treatments with a reduced risk of keloid formation, given her familial predisposition. Pain Description - Onset: Initially managed with cortisone injections with the onset of sciatica- like symptoms approximately four months ago. - Quality: Described as deep pain radiating from the left hip to the buttock and sometimes presenting in a sciatica pattern. - Location: Primarily localized in the left hip and radiating to the buttock. - Exacerbating Factors: No specific activity exacerbates the pain; it is often persistent regardless of movement or rest. - Relieving Factors: Past injections have provided temporary relief. - Interference: Pain has significantly impacted mobility and her ability to perform daily activities such as driving and walking. Pain Management - Affect: Pain is impacting her ability to perform daily activities and engage in exercise, affecting overall wellbeing. - Analgesia: Previously managed with cortisone injections and interlaminar FRANK which provided temporary relief. - Adverse Effects: Concerns about the long-term impact of corticosteroids on health and weight. - Activities of Daily Living: Pain limits her ability to walk, perform bodybuilding activities, and has decreased her overall activity level. - Aberrant Drug Related Behaviors: None reported. [facility] Medical History (Updated 01/28/25 @ 12:01 by Adam Hood MD) Hx of restrictive lung disease Osteopenia Hx of hepatic disease GERD (gastroesophageal reflux disease) History of polycystic ovarian disease Osteoarthritis of knees, bilateral Morbid obesity Hypothyroidism Chronic pain syndrome HTN (hypertension) Asthma Disorder of sacrum Surgical History Hx of exploratory laparotomy Hx of hysterectomy Hx of appendectomy Hx of abdominal surgery Hx of eye surgery History of sleeve gastrectomy Hx of left cataract extraction Social History Patient Tobacco Use Status: Never used Tobacco Advance Directives Date on File: 11/14/23 Physical Exam Vital Signs: Last Vital Signs Pulse 89 01/28/25 10:08 Resp 16 01/28/25 10:08 BP 126/73 01/28/25 10:08 Pulse Ox 98 01/28/25 10:08 Oxygen Delivery Method Room Air 01/28/25 10:08 BMI result Body Mass Index 32.0 Assessment & Plan Assessment & Plan (1) Sacroiliac joint dysfunction: Code(s): M53.3 - Sacrococcygeal disorders, not elsewhere classified Category: Medical (2) Osteoarthritis of knees, bilateral: Code(s): M17.0 - Bilateral primary osteoarthritis of knee Category: Medical (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 - Explore minimal surgical options for SIJ fusion if trial is successful. - Discuss alternative to cortisone injections to manage ongoing pain with reduced risks of long-term corticosteroid use. - Address left knee pain post-resolution of concurrent medical interventions. Patient was informed and verbally consented to the use of an ambient scribe for clinic note documentation during this visit. Discussion Notes In discussing the management of the patient's chronic left sacroiliac joint pain, I explained the limitations and concerns of continued corticosteroid use and proposed the consideration of a neurostimulation trial as an alternative. I described the minor surgical procedure involved in implanting the neurostim ulation device if the trial proves effective. The patient expressed understanding and agreed to proceed with the psychological clearance needed for insurance purposes. We reviewed alternatives, including SI joint fusion, and acknowledged its more invasive nature compared to the nerve stimulation therapy, the latter being reversible and less invasive. Additionally, I confirmed that the patient can proceed with water-based activities, such as water jogging, following healing from the procedure. Patient Instructions - Begin the psychological evaluation required for potential neurostimulation tr eatment. - Expect a call for the psychological interview process. - Monitor pain levels and report any significant changes. - Consider temporary relief measures, such as warm water soaks with Epsom salt, to alleviate pain. - Follow up with the specialist team for coordination and timing of future dental and knee procedures. Coding Level of Care Code Est Pt Level 4 (18480) Diagnoses Sacroiliac joint dysfunction M53.3 Osteoarthritis of knees, bilateral M17.0 Cluneal neuropathy G58.8
[2025-01-28 10:08] VITALS: BP 126/73; PULSE 89; RESP 16; O2SAT 98; BMI 32.0
--- OUTSIDE RECORDS SUMMARY | 2025-01-28 10:39 | XMS_ITS | Patient Health Record ---
Author Organization [facility] Address [address] [place] [address] Care Team Providers [facility] Supervisor Name Role Phone Moris (RETIRED) Jimmy AGEE Primary Care Provide Mireya Fontana Unavailable [phone] Allergies Allergen (clinical drug ingredient) Drug/Non Drug [...] Chloride 5MG XL 1 [place]AL [place] [facility] [place] metFORMIN HCl 500MG 1 ORAL twice daily f [place] [facility] [place] 12/17/2013 Active Levoxyl 50MCG 1 ORAL daily [place] [facility] 12/17/2013 Active Fluticasone Propionate HFA 110 MCG/ACT 1 puff Inhalation Twice a day Active Betamethasone Active Vitamin D3 1000 IU ORAL daily [place] [facility] [place] 12/17/2013 Active ProAir HFA ORAL for [facility] 12/17/2013 Active Atrovent 18MCG 2 Inhalation four ti mes daily for [facility] 12/17/2013 Active Gabapentin 100 MG 1 capsule Orally Thr ee times a day Active EpiPen Active Minoxidil for Women 2 % 1 application to affected area Externally Twice a day Active Problems Problem Type SNOMED Code ICD Code Onset Dates Problem Status W/U Status Risk Notes Problem Morbid (severe) obesity due to excess calories (E66.01) Active confirmed Problem Menopause (793793094) Menopausal and female climacteric states (N95.1) Active confirmed Plan Of Treatment Pending Test Test Name Order Date THIN PREP,HPV,BECKY IF HPV+ (>29YR)(SCRN) 01/22/2018 Insurance Providers Payer Name Payer Address Payer Phone Subscriber Number Group Number Insured Name Patient Relationship to Insured Coverage Start Date Coverage End Date MEDICARE [address] [place], [place] [phone] [id number] DEMETRIA ELMORE Self - patient is the insured [employer] [address] [place] [address] [phone] [id number] DEMETRIA ELMORE Self - patient is [...]
== END 2025-01-28 10:43 | disposition home or self-care (01) ==
LOC: HO.PMC 10:03
PROVIDERS: PCP Student in an Organized Health Care Education/Training Program; Visit Provider Internal Medicine
DX: M53.3 Sacrococcygeal disorders, not elsewhere classified (principal); M17.0 Bilateral primary osteoarthritis of knee; G58.8 Other specified mononeuropathies
CPT/HCPCS: 99214

== ENCOUNTER → 2025-01-28 10:03 | Outpatient (BNVA) | payer MEDICARE, SELFPAY | PROVIDERS: PCP Student in an Organized Health Care Education/Training Program; Visit Provider Internal Medicine | DX: M53.3 Sacrococcygeal disorders, not elsewhere classified (principal); M17.0 Bilateral primary osteoarthritis of knee; G58.8 Other specified mononeuropathies | CPT/HCPCS: 99212 ==